=== PATIENT | female | born 1950 | race Caucasian/White ===

== ENCOUNTER 2017-02-08 19:16 | Inpatient (IN) | payer BC ==
[~2017-02-08] VITALS: Ht 162.6 cm; Wt 80.0 kg
[~2017-02-08 19:16] MED LIST: AMBCR125 PO; BUPR200T2 PO; DVNUNK; ESCI1TAB10 PO; FSM70 PO; GLC500 PO; LMCUNK
[2017-02-08] MEDS ORDERED: ONDANSETRON INJ 2 MG/ML 2 ML VIAL IV STA (19:24)
[2017-02-08] MEDS ORDERED: MoRPHine SULFATE 10 MG/ML CARP/VIAL IV STA (19:24)
[2017-02-08] MEDS ORDERED: MoRPHine SULFATE 2 MG/ML CARP ONE (19:35)
[2017-02-08] MEDS ORDERED: MoRPHine SULFATE 4 MG/ML 1 ML CARP\\VIAL ONE (19:36)
--- NOTE | 2017-02-08 20:29 | DIAGNOSTIC IMAGING REPORT ---
PELVIS 1 OR 2 VIEW ROUTINE CLINICAL HISTORY: Pelvic and right hip pain. Trauma. COMPARISON STUDY: 05/17/2016 FINDINGS: There is an acute intertrochanteric right hip fracture with mild varus angulation IMPRESSION: Acute intertrochanteric right hip fracture. Electronically signed by: Micheal Hook M.D. 02/08/2017 8:27 PM Dictated Date/Time: 02/08/2017 8:27 PM
--- NOTE | 2017-02-08 20:29 | DIAGNOSTIC IMAGING REPORT ---
CHEST ONE VIEW PORTABLE CLINICAL HISTORY: Hip pain. Trauma. COMPARISON STUDY: 07/18/2015 FINDINGS: The heart is at the upper limits of normal in size. Mild superior mediastinal prominence is likely secondary to the AP portable technique. There is no focal pulmonary consolidation. There is no failure. There are no pleural effusions. No pneumothorax is visualized.[ IMPRESSION: No active disease in the chest. Electronically signed by: Micheal Hook M.D. 02/08/2017 8:27 PM Dictated Date/Time: 02/08/2017 8:26 PM
--- NOTE | 2017-02-08 20:30 | DIAGNOSTIC IMAGING REPORT ---
RIGHT FEMUR 2 VIEWS ROUTINE CLINICAL HISTORY: Right femur pain. Trauma. COMPARISON: None. DISCUSSION: There is an acute intertrochanteric right hip fracture. The fracture is comminuted and mildly displaced. There is varus angulation at the fracture site. No additional femoral fractures are visualized. IMPRESSION: Comminuted displaced acute intertrochanteric right hip fracture. Electronically signed by: Micheal Hook M.D. 02/08/2017 8:28 PM Dictated Date/Time: 02/08/2017 8:28 PM
[2017-02-08] MEDS ORDERED: NAPR1TAB9 PO (20:59)
[2017-02-08] MEDS ORDERED: LAMO100T16 PO (20:59)
[2017-02-08] MEDS ORDERED: HOME1TAB8 PO (20:59)
[2017-02-08] MEDS ORDERED: FLUO10CA48 PO (20:59)
[2017-02-08 21:00] LABS: BASO % 0.2 %; BASO ABS # 0.03 K/uL (0-0.2); COMPLETE YES; EOS % 0.7 %; HEMATOCRIT 38.3 % (37-47); IG% 0.5 %; LYMPH % 9.5 %; LYMPH ABS # 1.42 K/uL (1.2-3.4); MEAN CELL VOLUME 84.2 fL (80-100); MEAN CORPUSCULAR HEMOGLOBIN 29.2 pg (25-34); MEAN CORPUSCULAR HGB CONC 34.7 g/dl (32-36); MEAN PLATELET VOLUME 9.1 fL (7.4-10.4); MONO % 7.6 %; NEUT % 81.5 %; PLATELET COUNT 228 K/uL (130-400); RED BLOOD COUNT 4.55 M/uL (4.2-5.4); WHITE BLOOD COUNT 15.01 K/uL (4.8-10.8)
[2017-02-08] MEDS ORDERED: FLUO40CA8 PO (21:11)
[2017-02-08 21:13] LABS: URINE APPEARANCE CLOUDY (CLEAR); URINE BILIRUBIN NEG (NEG); URINE COLOR YELLOW; URINE NITRITE NEG (NEG); URINE SPECIFIC GRAVITY 1.015 (1.000-1.030); UROBILINOGEN NEG (NEG); ZZURINE CULT IF INDIC CATH NO
[2017-02-08 21:14] LABS: INR 0.9 (0.9-1.1); PROTHROMBIN TIME (PATIENT) 10.1 SECONDS (9.0-12.0)
[2017-02-08 21:17] LABS: MANUAL MICROSCOPIC REQUIRED? NO; REVIEW REQ? NO
--- NOTE | 2017-02-08 21:59 | History and Physical ---
History & Physical Date & Time of Service: Feb 08, 2017 at 21:59 Chief Complaint: Fall, Hip Pain Primary Care Physician: Meredith Raya C.RTaylorNTaylorPTaylor History of Present Illness Source: patient, family The patient is a 66-year-old female who presents to the emergency department complaining of severe right hip pain that began immediately after a fall when jogging a few hours prior to arrival. She has no other complaint of pains for injury post fall. This was a mechanical fall, the patient denies being lightheaded or dizzy or having palpitations prior to the event. Past Medical/Surgical History Medical Problems: (1) Depression Status: Chronic Family History Patient reports no known family medical history. Social History Smokeless Tobacco Use: No Alcohol Use: none Drug Use: none Multi-Drug Resistant Organisms History of MDRO: No Allergies Coded Allergies: No Known Allergies (Unverified , 07/20/08) Home Medications Scheduled Fluoxetine (Prozac), 100 MG PO HS Homeopathic Products (Zicam Cold Remedy), 1 TAB PO prn Lamotrigine (Lamictal), 100 MG PO HS Naproxen (Aleve), 440 MG PO prn Review of Systems The patient denies chest pain, palpitations, shortness of breath, cough, vision change, hearing change, sore throat, fevers, chills, sweats, weight change, fatigue, nausea, vomiting, abdominal pain, pelvic pain, blood in urine or stool, dysuria, urinary frequency or urgency, lightheadedness, dizziness, headache, memory loss, rash, abnormal bruising or bleeding, imbalance, generalized weakness, numbness or tingling in arms , arthralgias or myalgias, back or neck pain, night sweats, or allergy symptoms. The review of systems is otherwise negative other than for that already noted above, and at least 10 systems have been reviewed. Physical Exam Vital Signs Date Time Temp Pulse Resp B/P Pulse Ox O2 Delivery O2 Flow Rate FiO2 02/08/17 21:55 72 20 172/94 99 Room Air 02/08/17 19:19 36.4 71 20 170/87 95 Room Air The patient is awake, well-developed and adequately nourished, alert and oriented 3, normocephalic and atraumatic, lying in bed and in mild to moderate acute distress secondary to hip pain. HEENT--PERRL, EOMI, mucous membranes and oropharynx normal. Neck--supple, no JVD or bruits, thyroid normal, trachea midline, no adenopathy. Heart--normal S1 and S2, no extra beats, no murmurs, rubs or gallops. Lungs--clear bilaterally with good air movement, no respiratory distress, no accessory muscle use. Abdomen--normal bowel sounds and soft, nontender and nondistended, no hernias or masses, no organomegaly. Extremities--no cyanosis, clubbing or edema. There are good distal pulses b/l. Dermatologic--normal skin turgor, normal color, warm and dry, no abnormal lymph nodes, no rash. Neurologic--cranial nerves II through XII grossly intact, motor and sensory examination normal. Rheumatologic--painful right hip decreased range of motion with foot deviated outward Psychiatric--normal affect. Diagnostics Laboratory Results Results Past 24 Hours Test 02/08/17 20:45 02/08/17 20:48 Range/Units Urine Color YELLOW Urine Appearance CLOUDY CLEAR Urine pH 8.0 4.5-7.5 Urine Specific [place] 1.015 1.000-1.030 Urine Protein NEG NEG Urine Glucose (UA) NEG NEG Urine Ketones NEG NEG Urine Occult Blood NEG NEG Urine Nitrite NEG NEG Urine Bilirubin NEG NEG Urine Urobilinogen NEG NEG Urine Leukocyte Esterase NEG NEG Urine WBC (Auto) 0 0-5 /hpf Urine RBC (Auto) 0-4 0-4 /hpf Urine Hyaline Casts (Auto) 1-5 0-5 /lpf Urine Epithelial Cells (Auto) 10-20 0-5 /lpf Urine Bacteria (Auto) NEG NEG White Blood Count 15.01 4.8-10.8 K/uL Red Blood Count 4.55 4.2-5.4 M/uL Hemoglobin 13.3 12.0-16.0 g/dL Hematocrit 38.3 37-47 % Mean Corpuscular Volume 84.2 80-100 fL Mean Corpuscular Hemoglobin 29.2 25-34 pg Mean Corpuscular Hemoglobin Concent 34.7 32-36 g/dl Platelet Count 228 130-400 K/uL Mean Platelet Volume 9.1 7.4-10.4 fL Neutrophils (%) (Auto) 81.5 % Lymphocytes (%) (Auto) 9.5 % Monocytes (%) (Auto) 7.6 % Eosinophils (%) (Auto) 0.7 % Basophils (%) (Auto) 0.2 % Neutrophils # (Auto) 12.25 1.4-6.5 K/uL Lymphocytes # (Auto) 1.42 1.2-3.4 K/uL Monocytes # (Auto) 1.14 0.11-0.59 K/uL Eosinophils # (Auto) 0.10 0-0.5 K/uL Basophils # (Auto) 0.03 0-0.2 K/uL RDW Standard Deviation 39.6 36.4-46.3 fL RDW Coefficient of Variation 13.0 11.5-14.5 % Immature Granulocyte % (Auto) 0.5 % Immature Granulocyte # (Auto) 0.07 0.00-0.02 K/uL Prothrombin Time 10.1 9.0-12.0 SECONDS Prothromb Time International Ratio 0.9 0.9-1.1 Activated Partial Thromboplast Time 25.0 21.0-31.0 SECONDS Partial Thromboplastin Ratio 1.0 Diagnostic Radiology Patient Name: RICHARD HUFF Unit Number: [id number] Dictated: 02/08/172027 Transcribed: 02/08/172027 ARG Printed Date/Time: [~ rep prt dt]/[~ rep prt tm] [~ rep ct labl] - [~ rep ct ivnm] [facility] [place] [address] Dictated: 02/08/172027 Transcribed: 02/08/172027 ARG Printed Date/Time: [~ rep prt dt]/[~ rep prt tm] [~ rep ct labl] - [~ rep ct ivnm] [~ rep ct add3]] RIGHT FEMUR 2 VIEWS ROUTINE CLINICAL HISTORY: Right femur pain. Trauma. COMPARISON: None. DISCUSSION: There is an acute intertrochanteric right hip fracture. The fracture is comminuted and mildly displaced. There is varus angulation at the fracture site. No additional femoral fractures are visualized. IMPRESSION: Comminuted displaced acute intertrochanteric right hip fracture. Electronically signed by: Micheal Hook M.D. 02/08/2017 8:28 PM Dictated Date/Time: 02/08/2017 8:28 PM The status of this report is Signed. Draft = Not yet reviewed or approved by Radiologist. Signed = Reviewed and approved by Radiologist. <AttendingPhy></AttendingPhy> <FamilyPhy>Meredith Raya C.R.N.P.</FamilyPhy> <PrimaryPhy>Meredith Raya C.R.NTaylorP.</PrimaryPhy> <UnitNumber>[id number]</ UnitNumber> <VisitNumber>[id number]</VisitNumber> <PatientName>RICHARD HUFF< /PatientName> <DateOfBirth>1950</DateOfBirth> <Location>[facility]</Location> < ServiceDate>02/08/17</ServiceDate> <MNE>ESINDI</MNE> <OrderingPhy>Luís Overton DO</OrderingPhy> <OrderingPhyMNE>f rep ord dr roca</OrderingPhyMNE> < DictatingPhyMNE>f rep dict dr roca</DictatingPhyMNE> <CCListMNE>f rep ct mne</ CCListMNE> <AdmittingPhyMNE>f pt admit dr roca</AdmittingPhyMNE> <AttendingPhyMNE >f pt attend dr roca</AttendingPhyMNE> <ConsultingPhyMNE>f pt consult dr roca</ConsultingPhyMNE> <FamilyPhyMNE>f pt fam dr roca</FamilyPhyMNE> <OtherPhyMNE>f pt other dr roca</OtherPhyMNE> < PrimaryPhyMNE>f pt prim care dr roca</PrimaryPhyMNE> <ReferringPhyMNE>f pt referring dr roca</ReferringPhyMNE> Patient Name: RICHARD HUFF Unit Number: [id number] Dictated: 02/08/172025 Transcribed: 02/08/172025 ARG Printed Date/Time: [~ rep prt dt]/[~ rep prt tm] [~ rep ct labl] - [~ rep ct ivnm] [facility] [place] [address] Dictated: 02/08/172025 Transcribed: 02/08/172025 ARG Printed Date/Time: [~ rep prt dt]/[~ rep prt tm] [~ rep ct labl] - [~ rep ct ivnm] CHEST ONE VIEW PORTABLE CLINICAL HISTORY: Hip pain. Trauma. COMPARISON STUDY: 07/18/2015 FINDINGS: The heart is at the upper limits of normal in size. Mild superior mediastinal prominence is likely secondary to the AP portable technique. There is no focal pulmonary consolidation. There is no failure. There are no pleural effusions. No pneumothorax is visualized.[ IMPRESSION: No active disease in the chest. Electronically signed by: Micheal Hook M.D. 02/08/2017 8:27 PM Dictated Date/Time: 02/08/2017 8:26 PM The status of this report is Signed. Draft = Not yet reviewed or approved by Radiologist. Signed = Reviewed and approved by Radiologist. <AttendingPhy></AttendingPhy> <FamilyPhy>Meredith Raya, C.R.N.P.</FamilyPhy> <PrimaryPhy>Meredith Raya, C.R.N.P.</PrimaryPhy> <UnitNumber>[id number]</ UnitNumber> <VisitNumber>[id number]</VisitNumber> <PatientName>RICHARD HUFF< /PatientName> <DateOfBirth>1950</DateOfBirth> <Location>[facility]</Location> < ServiceDate>02/08/17</ServiceDate> <MNE>ESINDI</MNE> <OrderingPhy>Luís Overton DO</OrderingPhy> <OrderingPhyMNE>f rep ord dr roca</OrderingPhyMNE> < DictatingPhyMNE>f rep dict dr roca</DictatingPhyMNE> <CCListMNE>f rep ct mne</ CCListMNE> <AdmittingPhyMNE>f pt admit dr roca</AdmittingPhyMNE> <AttendingPhyMNE >f pt attend dr roca</AttendingPhyMNE> <ConsultingPhyMNE>f pt consult dr roca</ConsultingPhyMNE> <FamilyPhyMNE>f pt fam dr roca</FamilyPhyMNE> <OtherPhyMNE>f pt other dr roca</OtherPhyMNE> < PrimaryPhyMNE>f pt prim care dr roca</PrimaryPhyMNE> <ReferringPhyMNE>f pt referring dr roca</ReferringPhyMNE> Patient Name: RICHARD HUFF Unit Number: [id number] Dictated: 02/08/172026 Transcribed: 02/08/172026 ARG Printed Date/Time: [~ rep prt dt]/[~ rep prt tm] [~ rep ct labl] - [~ rep ct ivnm] [facility] Radiology Department [place] [id number] Dictated: 02/08/172026 Transcribed: 02/08/172026 ARG Printed Date/Time: [~ rep prt dt]/[~ rep prt tm] [~ rep ct labl] - [~ rep ct ivnm] [~ rep ct add3]] PELVIS 1 OR 2 VIEW ROUTINE CLINICAL HISTORY: Pelvic and right hip pain. Trauma. COMPARISON STUDY: 05/17/2016 FINDINGS: There is an acute intertrochanteric right hip fracture with mild varus angulation IMPRESSION: Acute intertrochanteric right hip fracture. Electronically signed by: Micheal Hook M.D. 02/08/2017 8:27 PM Dictated Date/Time: 02/08/2017 8:27 PM The status of this report is Signed. Draft = Not yet reviewed or approved by Radiologist. Signed = Reviewed and approved by Radiologist. <AttendingPhy></AttendingPhy> <FamilyPhy>Meredith Raya C.R.N.P.</FamilyPhy> <PrimaryPhy>Meredith Raya C.RTaylorN.P.</PrimaryPhy> <UnitNumber>[id number]</ UnitNumber> <VisitNumber>[id number]</VisitNumber> <PatientName>RICHARD HUFF< /PatientName> <DateOfBirth>1950</DateOfBirth> [facility] < ServiceDate>02/08/17</ServiceDate> <MNE>ESINDI</MNE> <OrderingPhy>OvertonLuís harper Talita DO</OrderingPhy> <OrderingPhyMNE>f rep ord dr roca</OrderingPhyMNE> < DictatingPhyMNE>f rep dict dr roca</DictatingPhyMNE> <CCListMNE>f rep ct mne</ CCListMNE> <AdmittingPhyMNE>f pt admit dr roca</AdmittingPhyMNE> <AttendingPhyMNE >f pt attend dr roca</AttendingPhyMNE> <ConsultingPhyMNE>f pt consult dr roca</ConsultingPhyMNE> <FamilyPhyMNE>f pt fam dr roca</FamilyPhyMNE> <OtherPhyMNE>f pt other dr roca</OtherPhyMNE> < PrimaryPhyMNE>f pt prim care dr roca</PrimaryPhyMNE> <ReferringPhyMNE>f pt referring dr roca</ReferringPhyMNE> EKG EKG shows normal sinus rhythm at 78 bpm, there are no acute ST-T changes. Impression Assessment and Plan Closed right hip fracture--the patient be admitted to the medical surgical floor. She'll be made nothing by mouth after midnight. Place on Zofran 4 mg IV every 6 hours when necessary, Protonix 40 mg IV daily, and morphine sulfate 2 -4 mg IV every 2 hours when necessary[address] Consult Dr. Saeed Johnson from orthopedics. Place on normal saline with KCl 20 mEq at 100 ML's per hour. Depression--continue fluoxetine 100 mg by mouth at bedtime and lamotrigine 100 mg by mouth at bedtime. Level of Care Med/Surg Advanced Directives Existing Advance Directive: No Existing Living Will: No Existing Power of Advertising Columnist: No Resuscitation Status FULL RESUSCITATION VTE Prophylaxis VTE Risk Assessment Done? Y/N: Yes Risk Level: Moderate Given or contraindicated: SCD's
[2017-02-08] MEDS ORDERED: ACETAMINOPHEN IV 100 ML IV PRN (22:00)
[2017-02-08] MEDS ORDERED: MoRPHine SULFATE 2 MG/ML CARP IV PRN (22:00)
[2017-02-08] MEDS ORDERED: ACETAMINOPHEN 325 MG TAB PO PRN (22:00)
[2017-02-08] MEDS ORDERED: ONDANSETRON INJ 2 MG/ML 2 ML VIAL IV PRN (22:00)
[2017-02-08] MEDS ORDERED: ZOLPIDEM TARTRATE 5 MG TAB PO PRN (22:00)
[2017-02-08 22:12] LABS: BUN/CREATININE RATIO 15.4 (10-20); CALCIUM 8.9 mg/dl (8.5-10.1); CREATININE 1.2 mg/dl (0.60-1.20); POTASSIUM 3.7 mmol/L (3.5-5.1)
--- NOTE | 2017-02-08 22:28 | EMERGENCY ROOM VISIT NOTE ---
History Report prepared by Vidal: Parth Bedoya Under the Supervision of: Dr. Luís Overton D.O. First contact with patient: 19:18 Chief Complaint: HIP PAIN Stated Complaint: FALL, HIP PAIN History of Present Illness The patient is a 66 year old female who presents to the Emergency Room with complaints of severe and persistent left hip pain starting a few hours ago. The patient was jogging when she fell and landed on her left hip. She denies hitting her head. She has been having the pain since her fall. She has worsening pain with movement. Pt denies headache, change in vision, neck pain, fevers, chest pain, shortness of breath, nausea, vomiting, diarrhea, pain with urination, and melena. She denies any blood thinners. She does not have any medical problems. Source of History: patient Onset: a few hours ago Position: other (left hip) Symptom Intensity: severe Timing: other (persistent) Modifying Factors (Worsening): movement Associated Symptoms: No SOB, No chest pain, No diarrhea, No fevers, No headache, No nausea, No neck pain, No vomiting Review of Systems See HPI for pertinent positives & negatives. A total of 10 systems reviewed and were otherwise negative. Past Medical & Surgical Medical Problems: (1) Closed right hip fracture (2) Depression Family History Patient reports no known family medical history. Social History Marital Status: Occupation Status: retired Current/Historical Medications Scheduled Fluoxetine (Prozac), 100 MG PO HS Homeopathic Products (Zicam Cold Remedy), 1 TAB PO prn Lamotrigine (Lamictal), 100 MG PO HS Naproxen (Aleve), 440 MG PO prn Allergies Coded Allergies: No Known Allergies (Unverified , 07/20/08) Physical Exam Vital Signs Date Time Temp Pulse Resp B/P Pulse Ox O2 Delivery O2 Flow Rate FiO2 02/08/17 21:55 72 20 172/94 99 Room Air 02/08/17 19:19 36.4 71 20 170/87 95 Room Air Physical Exam GENERAL: Laying on her left side, in moderate distress, holding her right hip. HEAD: Normocephalic, atraumatic. EYE EXAM: normal conjunctiva, PERRL and EOM's grossly intact OROPHARYNX: no exudate, no erythema, lips, buccal mucosa, and tongue normal and mucous membranes are moist NECK: supple, no nuchal rigidity, no adenopathy, non-tender CHEST: stable to compression anteriorly posteriorly LUNGS: Clear to auscultation. Normal chest wall mechanics HEART: no murmurs, S1 normal and S2 normal ABDOMEN: abdomen soft, non-tender, normo-active bowel sounds, no masses, no rebound or guarding. BACK: Back is symmetrical on inspection and there is no deformity, no midline tenderness, no CVA tenderness. SKIN: Small abrasions on bilateral lower extremities UPPER EXTREMITIES: upper extremities are grossly normal. LOWER EXTREMITIES: No pitting edema. Right lower extremity with significant pain with palpation of the hip. DP 2/4. Gross sensations intact. Right lower extremity is shortened. Small abrasions on bilateral feet. No pain on palpation of the left lower extremity. NEURO EXAM: Normal sensorium, cranial nerves II-XII grossly intact, normal speech, no gross weakness of arms, no gross weakness of legs. Medical Decision & Procedures ER Provider Diagnostic Interpretation: Xray results as interpreted by me and the radiologist: CHEST ONE VIEW PORTABLE CLINICAL HISTORY: Hip pain. Trauma. COMPARISON STUDY: 07/18/2015 FINDINGS: The heart is at the upper limits of normal in size. Mild superior mediastinal prominence is likely secondary to the AP portable technique. There is no focal pulmonary consolidation. There is no failure. There are no pleural effusions. No pneumothorax is visualized.[ IMPRESSION: No active disease in the chest. Electronically signed by: Micheal Hook M.D. 02/08/2017 8:27 PM Dictated Date/Time: 02/08/2017 8:26 PM PELVIS 1 OR 2 VIEW ROUTINE CLINICAL HISTORY: Pelvic and right hip pain. Trauma. COMPARISON STUDY: 05/17/2016 FINDINGS: There is an acute intertrochanteric right hip fracture with mild varus angulation IMPRESSION: Acute intertrochanteric right hip fracture. Electronically signed by: Micheal Hook M.D. 02/08/2017 8:27 PM Dictated Date/Time: 02/08/2017 8:27 PM RIGHT FEMUR 2 VIEWS ROUTINE CLINICAL HISTORY: Right femur pain. Trauma. COMPARISON: None. DISCUSSION: There is an acute intertrochanteric right hip fracture. The fracture is comminuted and mildly displaced. There is varus angulation at the fracture site. No additional femoral fractures are visualized. IMPRESSION: Comminuted displaced acute intertrochanteric right hip fracture. Electronically signed by: Micheal Hook M.D. 02/08/2017 8:28 PM Dictated Date/Time: 02/08/2017 8:28 PM Laboratory Results 02/08/17 20:48 Red Blood Count 4.55, Mean Corpuscular Volume 84.2, Mean Corpuscular Hemoglobin 29.2, Mean Corpuscular Hemoglobin Concent 34.7, Mean Platelet Volume 9.1, Neutrophils (%) (Auto) 81.5, Lymphocytes (%) (Auto) 9.5, Monocytes (%) (Auto) 7.6, Eosinophils (%) (Auto) 0.7, Basophils (%) (Auto) 0.2, Neutrophils # (Auto) 12.25, Lymphocytes # (Auto) 1.42, Monocytes # (Auto) 1.14, Eosinophils # (Auto) 0.10, Basophils # (Auto) 0.03 02/08/17 20:48 Test 02/08/17 20:45 02/08/17 20:48 Urine Color YELLOW Urine Appearance CLOUDY (CLEAR) Urine pH 8.0 (4.5-7.5) Urine Specific [place] 1.015 (1.000-1.030) Urine Protein NEG (NEG) Urine Glucose (UA) NEG (NEG) Urine Ketones NEG (NEG) Urine Occult Blood NEG (NEG) Urine Nitrite NEG (NEG) Urine Bilirubin NEG (NEG) Urine Urobilinogen NEG (NEG) Urine Leukocyte Esterase NEG (NEG) Urine WBC (Auto) 0 /hpf (0-5) Urine RBC (Auto) 0-4 /hpf (0-4) Urine Hyaline Casts (Auto) 1-5 /lpf (0-5) Urine Epithelial Cells (Auto) 10-20 /lpf (0-5) Urine Bacteria (Auto) NEG (NEG) White Blood Count 15.01 K/uL (4.8-10.8) Red Blood Count 4.55 M/uL (4.2-5.4) Hemoglobin 13.3 g/dL (12.0-16.0) Hematocrit 38.3 % (37-47) Mean Corpuscular Volume 84.2 fL (80-100) Mean Corpuscular Hemoglobin 29.2 pg (25-34) Mean Corpuscular Hemoglobin Concent 34.7 g/dl (32-36) Platelet Count 228 K/uL (130-400) Mean Platelet Volume 9.1 fL (7.4-10.4) Neutrophils (%) (Auto) 81.5 % Lymphocytes (%) (Auto) 9.5 % Monocytes (%) (Auto) 7.6 % Eosinophils (%) (Auto) 0.7 % Basophils (%) (Auto) 0.2 % Neutrophils # (Auto) 12.25 K/uL (1.4-6.5) Lymphocytes # (Auto) 1.42 K/uL (1.2-3.4) Monocytes # (Auto) 1.14 K/uL (0.11-0.59) Eosinophils # (Auto) 0.10 K/uL (0-0.5) Basophils # (Auto) 0.03 K/uL (0-0.2) RDW Standard Deviation 39.6 fL (36.4-46.3) RDW Coefficient of Variation 13.0 % (11.5-14.5) Immature Granulocyte % (Auto) 0.5 % Immature Granulocyte # (Auto) 0.07 K/uL (0.00-0.02) Prothrombin Time 10.1 SECONDS (9.0-12.0) Prothromb Time International Ratio 0.9 (0.9-1.1) Activated Partial Thromboplast Time 25.0 SECONDS (21.0-31.0) Partial Thromboplastin Ratio 1.0 Anion Gap 12.0 mmol/L (3-11) Est Creatinine Clear Calc Drug Dose 48.5 ml/min Estimated GFR () 55.3 Estimated GFR (Non- 47.7 BUN/Creatinine Ratio 15.4 (10-20) Calcium Level 8.9 mg/dl (8.5-10.1) Laboratory results per my review. Medications Administered Medications (Trade) Dose Ordered Sig/Loly Route Start Time Stop Time Status Last Admin Dose Admin Ondansetron HCl (Zofran Inj) 4 mg NOW STAT IV 02/08/17 19:24 02/08/17 19:27 DC 02/08/17 19:32 4 MG Morphine Sulfate (MoRPHine SULFATE INJ) 2 mg STK-MED ONCE .ROUTE 02/08/17 19:35 02/08/17 19:36 DC 02/08/17 19:32 2 MG Morphine Sulfate (MoRPHine SULFATE INJ) 4 mg STK-MED ONCE .ROUTE 02/08/17 19:36 02/08/17 19:37 DC 02/08/17 19:31 4 MG ED Course ED COURSE: Vital signs were reviewed and showed hypertensive. The patients medical record was reviewed The above diagnostic studies were performed and reviewed. ED treatments and interventions as stated above. 1917: The patient was evaluated in room C04. A complete history and physical examination was performed. 2023: Upon reevaluation, the patient is resting comfortably.I discussed my findings with the patient and she understands and agrees with the treatment plan. Based on the patients age, coexisting illnesses, exam and lab findings the decision to treat as an inpatient was made. The patient remained stable while under my care. The patient will be evaluated for further management. 2031: I discussed the patient's case with Dr. Johnson, orthopedic surgeon with [facility]. 2043: I discussed the patient's case with Dr. Esquivel, from [facility]. Medical Decision Differential diagnoses include major intracranial, cervical, spinal, thoracic, abdominal, pelvic and neurologic injury. Fracture, contusion, sprain, strain, laceration, abrasions included as well. Patient is a 66-year-old female who presents to the ER following a mechanical fall walking. Denies any trauma to her head or any other complaints. No blood thinners. She is in significant pain in her right hip. X-ray show right hip fracture. Discussed this with orthopedics. Labs were obtained per the hip fracture protocol. White count was 15,000 likely secondary to pain. BMP was unremarkable. UA was unremarkable. INR was normal. Patient was given IV morphine and admitted to internal medicine for right hip fx. Consults Time Called: 2022 Consulting Physician: Dr. Johnson, orthopedic surgeon with [facility] Returned Call: 2031 I discussed the patient's case with Dr. Johnson, orthopedic surgeon with [facility]. Additional Consults: Time Called: 2039 Consulted Physician: Dr. Esquivel, from [facility] Returned Call: 2043 Additional Comments: I discussed the patient's case with Dr. Esquivel, from [facility]. Impression Primary Impression: Hip fracture, right Scribe Attestation The scribe's documentation has been prepared under my direction and personally reviewed by me in its entirety. I confirm that the note above accurately reflects all work, treatment, procedures, and medical decision making performed by me. Departure Information Dispostion Being Evaluated By Hospitalist Meredith Cortes C.R.NTaylorPTaylor (PCP) Patient Instructions My [facility] Problem Qualifiers Primary Impression: Hip fracture, right Encounter type: initial encounter Fracture type: closed Qualified Codes: S72.001A - Fracture of unspecified part of neck of right femur, initial encounter for closed fracture
[2017-02-08 22:35] VITALS: BP 172/94; PULSE 72; TEMP 36.4; O2SAT 95; Ht 162.6 cm; Wt 80.0 kg
[2017-02-08 23:00] VITALS: BP 190/79; PULSE 69; TEMP 36.5; O2SAT 99
[2017-02-08] MEDS: MoRPHine SULFATE 4 MG/ML 1 ML CARP\\VIAL IV PRN (23:15)
[2017-02-08 23:48] VITALS: BP 170/78
[2017-02-09] VITALS (8 sets, daily range): BP systolic 121–185; BP diastolic 74–108; PULSE 83–102; TEMP 36.4–36.9; O2SAT 95–98
[2017-02-09] MEDS: NSS + 20MEQ KCL 1000ML 1,000 ML IV SCH ×3 (00:31→19:07)
[2017-02-09] MEDS: MoRPHine SULFATE 4 MG/ML 1 ML CARP\\VIAL IV PRN ×5 (00:49→09:57)
[2017-02-09 06:37] LABS: BUN/CREATININE RATIO 14.8 (10-20); CALCIUM 8.7 mg/dl (8.5-10.1); CREATININE 1.1 mg/dl (0.60-1.20); MAGNESIUM 2.4 mg/dl (1.8-2.4); POTASSIUM 4.2 mmol/L (3.5-5.1)
[2017-02-09 07:27] LABS: BASO % 0.3 %; BASO ABS # 0.03 K/uL (0-0.2); COMPLETE YES; EOS % 0.2 %; HEMATOCRIT 36.3 % (37-47); IG% 0.4 %; LYMPH ABS # 1.25 K/uL (1.2-3.4); MEAN CELL VOLUME 86.2 fL (80-100); MEAN CORPUSCULAR HEMOGLOBIN 28.7 pg (25-34); MEAN CORPUSCULAR HGB CONC 33.3 g/dl (32-36); MEAN PLATELET VOLUME 9.1 fL (7.4-10.4); MONO % 11.6 %; NEUT % 76.5 %; PLATELET COUNT 223 K/uL (130-400); RED BLOOD COUNT 4.21 M/uL (4.2-5.4); WHITE BLOOD COUNT 11.34 K/uL (4.8-10.8)
--- NOTE | 2017-02-09 08:15 | ORTHOPEDIC CONSULTATION ---
DATE OF CONSULTATION: 02/09/2017 CHIEF COMPLAINT: Right hip pain. HISTORY OF PRESENT ILLNESS: This patient is a 66-year-old female who sustained injury to her hip last night. She apparently was running outside after her dog on a gravel surface when she misstepped and fell suddenly. She had immediate pain and discomfort, was unable to stand or bear weight. She denied lightheadedness, dizziness or palpitations. She has no other complaints other than severe right hip pain. PAST MEDICAL HISTORY: Positive for severe depression. PAST SURGICAL HISTORY: History of multiple surgeries including hysterectomy and C-sections. MEDICATIONS: Prozac 100 mg at bedtime, Lamictal 100 mg at bedtime. ALLERGIES: No known medical allergies. FAMILY HISTORY: The patient lives with her son. She is retired. No significant family history. REVIEW OF SYSTEMS: Essentially negative. See admission history and physical. PHYSICAL EXAMINATION: ORTHOPEDIC: The patient is lying in bed. She is uncomfortable. Her right leg is markedly shortened and externally rotated. She has good distal pulses. There are no openings in the skin. Distal neurological function is intact. Remainder of orthopedic exam is negative. IMAGING: X-rays reveal a markedly comminuted proximal right hip fracture which is intertrochanteric in nature but the greater trochanter is fractured off, femoral neck is fractured off and this is obviously an unstable fracture. IMPRESSION: Severe fracture, right hip. PLAN: Discussed with the patient that she has a complicated case with a high neck and greater trochanter fracture. Fixation options are multiple and could be difficult including open reduction and internal fixation, intramedullary pinning or calcar replacement type surgery. This was discussed with the patient, we will come up with a plan today. Informed consent is obtained. She is n.p.o. Thank you for this consult.
[2017-02-09] MEDS: LORAZEPAM INJ 0.5 MG in SYRINGE 0.75 ML IV PRN ×2 (10:50→21:49)
[2017-02-09] MEDS: PANTOprazole INJ 40 MG in SYRINGE 0 ML IV SCH (10:51)
[2017-02-09] MEDS ORDERED: CEFAZOLIN IV 2,000 MG/60 ML D5W IV ONE (13:25)
[2017-02-09] MEDS ORDERED: BUPIVACAINE 0.5 % 5 MG/1 ML PF 10ML VIAL ONE (13:32)
[2017-02-09] MEDS ORDERED: NURSING VERBAL MED ORDER STA (13:33)
[2017-02-09] MEDS ORDERED: MIDAZOLAM HCL 1 MG/ML 2ML VIAL ONE ×2 (13:51→14:40)
[2017-02-09] MEDS ORDERED: FENTANYL CITRATE INJ 50 MCG/1 ML 2 ML VIAL ONE ×2 (13:51→16:29)
[2017-02-09] MEDS ORDERED: VANCOMYCIN INJ 400 MG in NSS 100ML IR SCH (14:00)
[2017-02-09] MEDS ORDERED: POLYMYXIN B SULFATE 100,000 UNITS in NSS 100ML IR SCH (14:00)
[2017-02-09] MEDS ORDERED: KETAMINE HCL INJ 50 MG/ML 10 ML VIAL ONE (14:05)
[2017-02-09] MEDS ORDERED: POVIDONE-IODINE OP SOLN 30 ML BTL ONE (14:23)
[2017-02-09] MEDS ORDERED: EpHEDrine SULFATE 50MG/5ML SYR ONE (14:42)
[2017-02-09] MEDS ORDERED: DEXAMETHASONE SOD INJ 4 MG/ML VIAL ONE (14:42)
[2017-02-09] MEDS ORDERED: ONDANSETRON INJ 2 MG/ML 2 ML VIAL ONE (14:42)
[2017-02-09] MEDS ORDERED: EpHEDrine SULFATE INJ 50 MG/ML AMP IV PRN (15:15)
[2017-02-09] MEDS ORDERED: FENTANYL CITRATE INJ 50 MCG/1 ML 2 ML VIAL IV PRN (15:15)
[2017-02-09] MEDS ORDERED: ATROPINE SULFATE 0.1 MG/ML 5ML SYR IV PRN (15:15)
[2017-02-09] MEDS ORDERED: ONDANSETRON INJ 2 MG/ML 2 ML VIAL IV PRN (15:15)
--- NOTE | 2017-02-09 16:19 | [facility] Post Operative Brief Note ---
Immediate Operative Summary Operative Date Feb 09, 2017. Pre-Operative Diagnosis severe right hip fracture Post-Operative Diagnosis severe right hip fracture Procedure(s) Performed Right Cemented Hip Replacement Constrained Acetabular Cup, Greater Trochater Repair Surgeon Dr. Trev Johnson First Assistant Manager Surgeon(s) Diego Marshall PA-C Estimated Blood Loss 300ML Findings severe comminution Specimens A. Right femoral head Complication(s) None Disposition Recovery Room / PACU
[2017-02-09] MEDS ORDERED: BACITRACIN 50,000 UNITS IR ONE (16:22)
[2017-02-09] MEDS ORDERED: BISACODYL 10 MG SUPP PR PRN (16:30)
[2017-02-09] MEDS ORDERED: NALOXONE HCL 0.4 MG/1 ML VIAL/CARP IV PRN (16:30)
[2017-02-09] MEDS ORDERED: OXYCODONE HCL IR 5 MG TAB (IMMEDIATE RELEASE) PO PRN (16:30)
[2017-02-09] MEDS ORDERED: SOD PHOSPHATE/SOD BIPHOSPHATE ENEMA 132 ML BTL PR PRN (16:30)
--- NOTE | 2017-02-09 17:29 | Anesthesiology Progress Note ---
Anesthesia Post Op Note Date & Time Feb 09, 2017 at 17:28 Vital Signs Pain Intensity: 3 Vital Signs Past 12 Hours Date Time Temp Pulse Resp B/P Pulse Ox O2 Delivery O2 Flow Rate FiO2 02/09/17 17:20 98 18 133/73 96 Nasal Cannula 3 02/09/17 17:10 36.4 97 20 119/71 96 Nasal Cannula 3 02/09/17 17:00 97 18 122/65 97 Mask 10 02/09/17 16:50 96 18 125/72 97 Mask 10 02/09/17 16:43 36.8 95 16 110/64 98 Mask 10 02/09/17 07:25 36.7 83 16 162/84 97 2.0 02/09/17 07:15 Nasal Cannula 2.0 Notes Mental Status: alert / awake / arousable, participated in evaluation Pt Amnestic to Procedure: Yes Nausea / Vomiting: adequately controlled Pain: adequately controlled Airway Patency, RR, SpO2: stable & adequate BP & HR: stable & adequate Hydration State: stable & adequate Anesthetic Complications: no major complications apparent
[2017-02-09] MEDS: TRANEXAMIC ACID AMP 1,000 MG in NSS 100ML IV SCH ×2 (18:05→18:06)
--- NOTE | 2017-02-09 18:11 | OPERATIVE REPORT ---
DATE OF OPERATION: 02/08/2017 PREOPERATIVE DIAGNOSIS: Comminuted right proximal femur fracture. POSTOPERATIVE DIAGNOSIS: Same. PROCEDURES: 1. Right cemented total hip replacement with constrained acetabular component. 2. Repair of greater trochanter. SURGEON: Dr. Johnson. CUT TOBACCO BULKER: MAREK Shukla. ANESTHESIA: Spinal. BLOOD LOSS: 300. REPLACEMENT FLUIDS: 1800 mL of crystalloid. DRAINS: Hemovac x2. CULTURES: None. COMPLICATIONS: None. COMPONENTS USED: 1. Biomet G7 dual mobility cup size 48. 2. Stem Teresa CRS size 15 x 180 with a 10-mm calcar augment and 3.5 x 28-mm head. 3. Trochanteric repair claw 4-hole Teresa plate. NOTE: MAREK Shukla was present and assisted throughout due to the complicated nature of this case. He helped with preparation and set up, first assisted throughout and personally closed the fascial, subcutaneous and skin layers and applied the postoperative dressing. INDICATION FOR PROCEDURE: This patient is a 66-year-old female who has a history of depression, was in her usual state of health, was chasing her dog and fell, sustaining a severely comminuted proximal femur fracture. It was decided that replacement would be more successful then an attempted pinning. DESCRIPTION: Following satisfactory spinal, the patient was placed in the lateral decubitus position with the axillary roll and all sites were padded appropriately and the body was secured with a lateral body positioner. Following a surgical time-out, a lateral approach to the hip was performed, deepened through a moderately large subcutaneous layer. Hemostasis was controlled. The fascia was divided longitudinally exposing the proximal femur. It was obvious where the trochanteric fracture was. The greater trochanter fracture was mobilized using the trochanteric slide type approach leaving the vastus lateralis and all of the gluteus muscles attached to the trochanter. This was reflected anteriorly gluteus medius and gluteus minimus. The capsule was encountered. A complete posterior capsulectomy was completed, exposing the femoral neck and head fracture. The femoral neck with the attached femoral head was removed and the acetabulum was inspected. Acetabular soft tissue content was excised. Acetabular reaming was completed and a 47 and a 48 shell was impacted into an anatomic position and secured with a dome screw. The dual mobility liner was placed. Attention was turned to the femur. The femur was prepared up to the size 15. A 10-mm calcar replacement device was used and a 28-mm head +3.5 showed good soft tissue tension, leg lengths appeared approximately right using the medial malleolus. The trial component was removed. The cement restriction plug was placed. Third generation cement technique was used using Simplex G cement. When the cement had hardened, a trial reduction with a +3 head showed similar stability. After irrigation, the final head and dual mobility head was placed. The hip was irrigated and reduced. The wound was irrigated copiously. Two Hemovac drains were placed. The greater trochanter was then reapproximated using a 4-hole plate to attach it and this effected a very good fixation of the greater trochanter muscle complex. The wound was irrigated one final time. The vastus lateralis was reattached with a few posterior sutures. After irrigation, the fascia was closed with a running suture of 0 V-Loc and reinforced with #1 Vicryl. Subcutaneous tissues were closed with 1 and 2-0 Vicryl. Skin was closed with surgical stefan. A surface wound VAC was applied. The patient was turned back supine and returned to the recovery room having tolerated the procedure in good condition. I attest to the content of the Intraoperative Record and any orders documented therein. Any exceptio ns are noted below.
[2017-02-09] MEDS: OXYCODONE HCL IR 5 MG TAB (IMMEDIATE RELEASE) PO PRN ×2 (18:25→23:41)
--- NOTE | 2017-02-09 18:29 | Hospitalist Progress Note ---
Hospitalist Progress Note Date of Service Feb 09, 2017. Subjective Pt evaluation today including: conversation w/ patient patient with post op pain at site of surgery Medications Medications (Trade) Dose Ordered Sig/Loly Route Start Time Stop Time Status Last Admin Dose Admin Ondansetron HCl (Zofran Inj) 4 mg NOW STAT IV 02/08/17 19:24 02/08/17 19:27 DC 02/08/17 19:32 4 MG Morphine Sulfate (MoRPHine SULFATE INJ) 2 mg STK-MED ONCE .ROUTE 02/08/17 19:35 02/08/17 19:36 DC 02/08/17 19:32 2 MG Morphine Sulfate (MoRPHine SULFATE INJ) 4 mg STK-MED ONCE .ROUTE 02/08/17 19:36 02/08/17 19:37 DC 02/08/17 19:31 4 MG Ondansetron HCl 4 mg 4 mg Q6H PRN IV 02/08/17 22:00 03/10/17 21:59 02/08/17 23:14 4 MG Potassium Chloride/Sodium Chloride (Nss + 20meq KCl 1000ml) 1,000 ml @ 100 mls/hr Q10H IV 02/08/17 23:15 03/10/17 23:14 02/09/17 08:57 100 MLS/HR Morphine Sulfate 4 mg 4 mg Q2H PRN IV 02/08/17 22:00 02/09/17 17:56 DC 02/09/17 09:57 4 MG Pantoprazole Sodium 40 mg/ Syringe 10 ml @ 5 mls/min DAILY@11 IV 02/09/17 11:00 03/11/17 10:59 02/09/17 10:51 5 MLS/MIN Lorazepam/Syringe (Ativan Inj/ Syringe) 1 ml @ 0.5 mls/min TID PRN IV 02/09/17 10:00 03/11/17 09:59 02/09/17 10:50 0.5 MLS/MIN Cefazolin Sodium 2000 mg 2,000 mg STK-MED ONCE IV 02/09/17 13:25 02/09/17 13:26 DC 02/09/17 13:53 2,000 MG Polymyxin B Sulfate 444703 units/Sodium Chloride 102 ml @ 0 mls/hr TODAY@1400 IR 02/09/17 14:00 02/09/17 14:01 DC 02/09/17 16:17 102 MLS/HR Vancomycin HCl/ Sodium Chloride (Vancomycin Inj/ Nss 100ml) 108 ml @ 0 mls/hr TODAY@1400 IR 02/09/17 14:00 02/09/17 14:01 DC 02/09/17 16:15 108 MLS/HR Bacitracin (Bacitracin 50,000 Units) 50,000 units ONE ONCE IR 02/09/17 16:22 02/09/17 16:25 DC 02/09/17 16:25 50,000 UNITS Objective Vital Signs Date Time Temp Pulse Resp B/P Pulse Ox O2 Delivery O2 Flow Rate FiO2 02/09/17 18:23 36.6 94 16 164/84 95 Nasal Cannula 2.0 02/09/17 17:35 97 16 143/74 97 Nasal Cannula 3 02/09/17 17:20 98 18 133/73 96 Nasal Cannula 3 02/09/17 17:10 36.4 97 20 119/71 96 Nasal Cannula 3 02/09/17 17:00 97 18 122/65 97 Mask 10 02/09/17 16:50 96 18 125/72 97 Mask 10 02/09/17 16:43 36.8 95 16 110/64 98 Mask 10 02/09/17 07:25 36.7 83 16 162/84 97 2.0 02/09/17 07:15 Nasal Cannula 2.0 02/09/17 01:11 85 158/79 02/08/17 23:48 170/78 02/08/17 23:22 Room Air 02/08/17 23:00 36.5 69 16 190/79 99 Nasal Cannula 2.0 02/08/17 22:35 36.4 72 20 172/94 95 Nasal Cannula 2.0 02/08/17 22:20 95 Nasal Cannula 2.0 02/08/17 22:20 87 Room Air 02/08/17 21:55 72 20 172/94 99 Room Air 02/08/17 19:19 36.4 71 20 170/87 95 Room Air Physical Exam General Appearance: WD/WN Eyes: normal inspection ENT: hearing grossly normal Neck: trachea midline Respiratory/Chest: lungs clear Cardiovascular: regular rate, rhythm Abdomen: normal bowel sounds Laboratory Results Last 24 Hours Test 02/08/17 20:45 02/08/17 20:48 02/09/17 05:52 02/09/17 06:50 Urine Color YELLOW Urine Appearance CLOUDY Urine pH 8.0 Urine Specific Beemer 1.015 Urine Protein NEG Urine Glucose (UA) NEG Urine Ketones NEG Urine Occult Blood NEG Urine Nitrite NEG Urine Bilirubin NEG Urine Urobilinogen NEG Urine Leukocyte Esterase NEG Urine WBC (Auto) 0 /hpf Urine RBC (Auto) 0-4 /hpf Urine Hyaline Casts (Auto) 1-5 /lpf Urine Epithelial Cells (Auto) 10-20 /lpf Urine Bacteria (Auto) NEG White Blood Count 15.01 K/uL 11.34 K/uL Red Blood Count 4.55 M/uL 4.21 M/uL Hemoglobin 13.3 g/dL 12.1 g/dL Hematocrit 38.3 % 36.3 % Mean Corpuscular Volume 84.2 fL 86.2 fL Mean Corpuscular Hemoglobin 29.2 pg 28.7 pg Mean Corpuscular Hemoglobin Concent 34.7 g/dl 33.3 g/dl Platelet Count 228 K/uL 223 K/uL Mean Platelet Volume 9.1 fL 9.1 fL Neutrophils (%) (Auto) 81.5 % 76.5 % Lymphocytes (%) (Auto) 9.5 % 11.0 % Monocytes (%) (Auto) 7.6 % 11.6 % Eosinophils (%) (Auto) 0.7 % 0.2 % Basophils (%) (Auto) 0.2 % 0.3 % Neutrophils # (Auto) 12.25 K/uL 8.69 K/uL Lymphocytes # (Auto) 1.42 K/uL 1.25 K/uL Monocytes # (Auto) 1.14 K/uL 1.31 K/uL Eosinophils # (Auto) 0.10 K/uL 0.02 K/uL Basophils # (Auto) 0.03 K/uL 0.03 K/uL RDW Standard Deviation 39.6 fL 42.7 fL RDW Coefficient of Variation 13.0 % 13.4 % Immature Granulocyte % (Auto) 0.5 % 0.4 % Immature Granulocyte # (Auto) 0.07 K/uL 0.04 K/uL Prothrombin Time 10.1 SECONDS Prothromb Time International Ratio 0.9 Activated Partial Thromboplast Time 25.0 SECONDS Partial Thromboplastin Ratio 1.0 Sodium Level 140 mmol/L 141 mmol/L Potassium Level 3.7 mmol/L 4.2 mmol/L Chloride Level 105 mmol/L 107 mmol/L Carbon Dioxide Level 23 mmol/L 26 mmol/L Anion Gap 12.0 mmol/L 8.0 mmol/L Blood Urea Nitrogen 18 mg/dl 16 mg/dl Creatinine 1.20 mg/dl 1.10 mg/dl Est Creatinine Clear Calc Drug Dose 48.5 ml/min 52.9 ml/min Estimated GFR () 55.3 61.4 Estimated GFR (Non- 47.7 53.0 BUN/Creatinine Ratio 15.4 14.8 Random Glucose 194 mg/dl 141 mg/dl Calcium Level 8.9 mg/dl 8.7 mg/dl Magnesium Level 2.4 mg/dl Chemistry Specimen Hemolysis Assessment and Plan (1) Closed right hip fracture Assessment & Plan: Post op care with dvt prop per orthopedics (2) Depression (3) Seizure disorder Assessment & Plan: continue lamictal
--- NOTE | 2017-02-09 18:47 | DIAGNOSTIC IMAGING REPORT ---
RIGHT HIP 2 VIEWS CLINICAL HISTORY: Postoperative examination. FINDINGS: AP and crosstable lateral portable views of the right hip are correlated with radiographs of the right femur dated 02/08/2017. The skeletal structures are osteopenic. A right hip arthroplasty is in near anatomic alignment. A single cortical lag screw transfixes the acetabular cup. A buttress plate has been placed along the lateral aspect of the proximal femur transfixing a subtrochanteric fracture. The fragments are in near-anatomic alignment. 3 cerclage wires are present around the buttress plate and the arthroplasty stem. There are expected postoperative findings around the right hip including skin clips, a surgical drain, subcutaneous tissues gas, and soft tissue edema. The imaged right hemipelvis appears intact. IMPRESSION: 1. Expected postoperative findings status post right hip arthroplasty procedure. The arthroplasty is in near-anatomic alignment. 2. Subtrochanteric fracture is identified with a buttress plate along the lateral femoral cortex. The fragments are in near-anatomic alignment. Electronically signed by: Franc Ybarra M.D. 02/09/2017 6:45 PM Dictated Date/Time: 02/09/2017 6:42 PM
[2017-02-09] MEDS: HYDROmorphone INJ 0.5 MG/0.5 ML SYR IV PRN ×2 (19:07→20:08)
[2017-02-09] MEDS: FLUOXETINE HCL 20 MG CAP PO SCH (21:16)
[2017-02-10] MEDS: CEFAZOLIN IV 2,000 MG in DEXTROSE 5% 50ML 50 ML IV SCH ×2 (00:18→08:08)
[2017-02-10 00:20] VITALS: BP 178/79
[2017-02-10] MEDS: ACETAMINOPHEN 325 MG TAB PO PRN (00:23)
[2017-02-10] MEDS: HYDROmorphone INJ 0.5 MG/0.5 ML SYR IV PRN ×4 (00:44→05:47)
[2017-02-10 02:42] VITALS: BP 166/80; PULSE 99; TEMP 36.7; O2SAT 96
[2017-02-10] MEDS: OXYCODONE HCL IR 5 MG TAB (IMMEDIATE RELEASE) PO PRN ×2 (03:16→12:34)
[2017-02-10] MEDS: NSS + 20MEQ KCL 1000ML 1,000 ML IV SCH ×2 (05:00→15:28)
[2017-02-10] MEDS ORDERED: CEFAZOLIN 2000 MG/60 ML D5W IV SCH (06:00)
[2017-02-10 06:22] LABS: BASO % 0.2 %; BASO ABS # 0.03 K/uL (0-0.2); COMPLETE YES; EOS % 0.1 %; HEMATOCRIT 30.6 % (37-47); IG% 0.3 %; LYMPH % 8.3 %; LYMPH ABS # 1.24 K/uL (1.2-3.4); MEAN CELL VOLUME 87.9 fL (80-100); MEAN PLATELET VOLUME 9.2 fL (7.4-10.4); MONO % 10.2 %; NEUT % 80.9 %; PLATELET COUNT 210 K/uL (130-400); RED BLOOD COUNT 3.48 M/uL (4.2-5.4); WHITE BLOOD COUNT 14.87 K/uL (4.8-10.8)
[2017-02-10 07:23] VITALS: BP 154/80; PULSE 98; TEMP 36.8; O2SAT 97
[2017-02-10] MEDS ORDERED: HYDROmorphone INJ 0.5 MG/0.5 ML SYR IV PRN ×2 (07:30→09:00)
[2017-02-10 07:38] LABS: BUN/CREATININE RATIO 11.2 (10-20); CREATININE 0.88 mg/dl (0.60-1.20); MAGNESIUM 1.9 mg/dl (1.8-2.4); POTASSIUM 4.1 mmol/L (3.5-5.1)
[2017-02-10] MEDS: OXYCODONE HCL 10 MG TABCR (OXYCONTIN) PO SCH ×2 (07:44→19:30)
[2017-02-10] MEDS: KETOROLAC TROMETHAMINE 30 MG/ML VIAL IV PRN ×2 (07:44→14:19)
--- NOTE | 2017-02-10 08:06 | Orthopedic Progress Note ---
Orthopedic Progress Note Date of Service Feb 10, 2017. Subjective Post OP Day: 1 Reports: complaints (HIP PAIN, PAIN MEDS CHANGED AROUND THIS AM BY MICHEL.), Denies: SOB, calf pain, chest pain, light headedness, nausea / vomiting Objective calves soft nontender, N/V intact, hip located, dressing C/D/I, A&O x3, toes mobile, hemovac drainage (195/100CC PER SHIFT) Date Time Temp Pulse Resp B/P Pulse Ox O2 Delivery O2 Flow Rate FiO2 02/10/17 07:23 36.8 98 16 154/80 97 2.0 02/10/17 07:07 Nasal Cannula 2.0 02/10/17 02:42 36.7 99 16 166/80 96 Nasal Cannula 3.0 02/10/17 00:20 178/79 02/09/17 23:45 Nasal Cannula 3.0 02/09/17 23:25 36.6 96 16 185/93 97 Nasal Cannula 3.0 02/09/17 20:43 36.6 98 17 177/92 95 Nasal Cannula 2.0 02/09/17 19:49 36.9 102 17 183/108 96 Nasal Cannula 2.0 02/09/17 18:43 36.4 96 16 175/95 98 Nasal Cannula 2.0 02/09/17 18:23 36.6 94 16 164/84 95 Nasal Cannula 2.0 02/09/17 17:40 36.4 90 18 121/74 95 Nasal Cannula 3.0 02/09/17 17:40 95 Nasal Cannula 3.0 02/09/17 17:40 95 Nasal Cannula 3.0 02/09/17 17:35 97 16 143/74 97 Nasal Cannula 3 02/09/17 17:20 98 18 133/73 96 Nasal Cannula 3 02/09/17 17:10 36.4 97 20 119/71 96 Nasal Cannula 3 02/09/17 17:00 97 18 122/65 97 Mask 10 02/09/17 16:50 96 18 125/72 97 Mask 10 02/09/17 16:43 36.8 95 16 110/64 98 Mask 10 Laboratory Results 24 Hours: Test 02/10/17 05:48 White Blood Count 14.87 K/uL Red Blood Count 3.48 M/uL Hemoglobin 10.1 g/dL Hematocrit 30.6 % Mean Corpuscular Volume 87.9 fL Mean Corpuscular Hemoglobin 29.0 pg Mean Corpuscular Hemoglobin Concent 33.0 g/dl Platelet Count 210 K/uL Mean Platelet Volume 9.2 fL Neutrophils (%) (Auto) 80.9 % Lymphocytes (%) (Auto) 8.3 % Monocytes (%) (Auto) 10.2 % Eosinophils (%) (Auto) 0.1 % Basophils (%) (Auto) 0.2 % Neutrophils # (Auto) 12.02 K/uL Lymphocytes # (Auto) 1.24 K/uL Monocytes # (Auto) 1.52 K/uL Eosinophils # (Auto) 0.01 K/uL Basophils # (Auto) 0.03 K/uL Assessment & Plan Assessment: POD#1 SP RIGHT ART FOR FRACTURE Inhouse Planning Pain Management: Celebrex, Toradol, Oxycontin, PO Tylenol, Oxy IR DVT Prophylaxis: TEDs, SCDs, Lovenox (40MG ONCE DAILY) Discharge Planning Discharge Planning: detention facility (ANTICIPATE SHORT INPT REHAB STAY. )
[2017-02-10] MEDS: PANTOprazole INJ 40 MG in SYRINGE 0 ML IV SCH (11:07)
[2017-02-10 11:45] VITALS: BP 111/65; PULSE 97; O2SAT 91
[2017-02-10] MEDS ORDERED: CEFAZOLIN IV 2,000 MG/60 ML D5W IV ONE (12:00)
[2017-02-10] MEDS: ENOXAPARIN 40 MG/0.4 ML SYR SQ SCH (12:33)
[2017-02-10 14:59] VITALS: BP 114/67; PULSE 87; TEMP 36.8; O2SAT 94
--- NOTE | 2017-02-10 19:29 | Hospitalist Progress Note ---
Hospitalist Progress Note Date of Service Feb 10, 2017. Subjective Pt evaluation today including: conversation w/ patient, physical exam Pain: better controlled patient has better pain control...has h.o insomnia ambien does not work for patient. Rec Ativan with short acting pain med prior to sleep. Medications Medications (Trade) Dose Ordered Sig/Loly Route Start Time Stop Time Status Last Admin Dose Admin Fluoxetine HCl (Prozac Cap) 100 mg HS PO 02/09/17 21:00 03/11/17 20:59 02/09/17 21:16 100 MG Lamotrigine (Lamictal Tab) 100 mg HS PO 02/09/17 21:00 03/11/17 20:59 02/09/17 21:16 100 MG Enoxaparin Sodium 40 mg 40 mg Q24H SQ 02/10/17 12:00 03/12/17 11:59 02/10/17 12:33 40 MG Cefazolin Sodium/ Dextrose (Ancef Iv/D5 50ml) 60 ml @ 100 mls/hr Q8H IV 02/10/17 00:30 02/10/17 09:05 DC 02/10/17 08:08 100 MLS/HR Oxycodone HCl (Oxycontin Tab) 10 mg Q12H PO 02/10/17 07:30 02/24/17 07:29 02/10/17 07:44 10 MG Hydromorphone HCl (Dilaudid Inj) 0.5 mg NOW PRN IV 02/10/17 07:30 02/10/17 11:30 DC 02/10/17 08:08 0.5 MG Ketorolac Tromethamine (Toradol Inj) 30 mg Q6H PRN IV 02/10/17 07:30 02/15/17 07:29 02/10/17 14:19 30 MG Objective Vital Signs Date Time Temp Pulse Resp B/P Pulse Ox O2 Delivery O2 Flow Rate FiO2 02/10/17 15:30 Nasal Cannula 2.0 02/10/17 14:59 36.8 87 18 114/67 94 Nasal Cannula 2.0 02/10/17 11:45 97 91 02/10/17 07:23 36.8 98 16 154/80 97 2.0 02/10/17 07:07 Nasal Cannula 2.0 02/10/17 02:42 36.7 99 16 166/80 96 Nasal Cannula 3.0 02/10/17 00:20 178/79 02/09/17 23:45 Nasal Cannula 3.0 02/09/17 23:25 36.6 96 16 185/93 97 Nasal Cannula 3.0 02/09/17 20:43 36.6 98 17 177/92 95 Nasal Cannula 2.0 02/09/17 19:49 36.9 102 17 183/108 96 Nasal Cannula 2.0 Physical Exam General Appearance: WD/WN, no apparent distress Eyes: sclerae normal Neck: trachea midline Respiratory/Chest: lungs clear Cardiovascular: regular rate, rhythm Abdomen: normal bowel sounds Laboratory Results Last 24 Hours Test 02/10/17 05:48 White Blood Count 14.87 K/uL Red Blood Count 3.48 M/uL Hemoglobin 10.1 g/dL Hematocrit 30.6 % Mean Corpuscular Volume 87.9 fL Mean Corpuscular Hemoglobin 29.0 pg Mean Corpuscular Hemoglobin Concent 33.0 g/dl Platelet Count 210 K/uL Mean Platelet Volume 9.2 fL Neutrophils (%) (Auto) 80.9 % Lymphocytes (%) (Auto) 8.3 % Monocytes (%) (Auto) 10.2 % Eosinophils (%) (Auto) 0.1 % Basophils (%) (Auto) 0.2 % Neutrophils # (Auto) 12.02 K/uL Lymphocytes # (Auto) 1.24 K/uL Monocytes # (Auto) 1.52 K/uL Eosinophils # (Auto) 0.01 K/uL Basophils # (Auto) 0.03 K/uL RDW Standard Deviation 42.6 fL RDW Coefficient of Variation 13.2 % Immature Granulocyte % (Auto) 0.3 % Immature Granulocyte # (Auto) 0.05 K/uL Sodium Level 139 mmol/L Potassium Level 4.1 mmol/L Chloride Level 105 mmol/L Carbon Dioxide Level 25 mmol/L Anion Gap 9.0 mmol/L Blood Urea Nitrogen 10 mg/dl Creatinine 0.88 mg/dl Est Creatinine Clear Calc Drug Dose 66.1 ml/min Estimated GFR () 80.5 Estimated GFR (Non- 69.4 BUN/Creatinine Ratio 11.2 Random Glucose 135 mg/dl Calcium Level 8.0 mg/dl Magnesium Level 1.9 mg/dl Assessment and Plan (1) Closed right hip fracture Assessment & Plan: s/p repair post operative care per orthopedics (2) Depression Assessment & Plan: continue prozac and lamictal (3) Advance care planning Assessment & Plan: discussed patient has a living will and poa
[2017-02-10] MEDS: FLUOXETINE HCL 20 MG CAP PO SCH (20:53)
[2017-02-10] MEDS ORDERED: SODIUM CHLORIDE 0.9% 500ML 500 ML IV SCH (22:30)
[2017-02-10 22:55] VITALS: BP 135/75; PULSE 95; TEMP 36.7; O2SAT 98
[2017-02-10] MEDS: LORAZEPAM INJ 0.5 MG in SYRINGE 0.75 ML IV PRN (23:07)
[2017-02-11] MEDS: NSS + 20MEQ KCL 1000ML 1,000 ML IV SCH ×2 (01:39→11:04)
[2017-02-11] MEDS: KETOROLAC TROMETHAMINE 30 MG/ML VIAL IV PRN ×2 (01:41→15:45)
[2017-02-11 06:15] LABS: BASO % 0.3 %; BASO ABS # 0.03 K/uL (0-0.2); EOS % 2.1 %; IG% 0.5 %; LYMPH % 15.6 %; LYMPH ABS # 1.57 K/uL (1.2-3.4); MEAN CELL VOLUME 89.1 fL (80-100); MEAN CORPUSCULAR HEMOGLOBIN 28.7 pg (25-34); MEAN CORPUSCULAR HGB CONC 32.2 g/dl (32-36); MONO % 10.2 %; NEUT % 71.3 %; PLATELET COUNT 157 K/uL (130-400); RED BLOOD COUNT 3.03 M/uL (4.2-5.4); WHITE BLOOD COUNT 10.08 K/uL (4.8-10.8)
[2017-02-11] MEDS: POLYETHYLENE (MIRALAX) 17 GM PACK PO SCH ×3 (06:37→19:00)
[2017-02-11 06:44] LABS: COMPLETE YES
[2017-02-11 06:58] LABS: BUN/CREATININE RATIO 13.6 (10-20); CREATININE 0.87 mg/dl (0.60-1.20); MAGNESIUM 2.1 mg/dl (1.8-2.4); POTASSIUM 3.9 mmol/L (3.5-5.1)
[2017-02-11 07:05] VITALS: BP 145/72; PULSE 89; TEMP 36.7; O2SAT 100
[2017-02-11] MEDS: OXYCODONE HCL 10 MG TABCR (OXYCONTIN) PO SCH ×2 (07:05→19:03)
--- NOTE | 2017-02-11 07:51 | Orthopedic Progress Note ---
Orthopedic Progress Note Date of Service Feb 11, 2017. Subjective Post OP Day: 2 Reports: feeling well, Denies: SOB, calf pain, chest pain, light headedness, nausea / vomiting Additional Notes: PAIN CONTROL SEEMS IMPROVED TODAY. Objective calves soft nontender, N/V intact, dressing C/D/I, A&O x3, toes mobile Date Time Temp Pulse Resp B/P Pulse Ox O2 Delivery O2 Flow Rate FiO2 02/11/17 07:05 36.7 89 18 145/72 100 2.0 02/10/17 23:30 Nasal Cannula 2.0 02/10/17 22:55 36.7 95 18 135/75 98 Nasal Cannula 2.0 02/10/17 15:30 Nasal Cannula 2.0 02/10/17 14:59 36.8 87 18 114/67 94 Nasal Cannula 2.0 02/10/17 11:45 97 91 Laboratory Results 24 Hours: Test 02/11/17 05:53 White Blood Count 10.08 K/uL Red Blood Count 3.03 M/uL Hemoglobin 8.7 g/dL Hematocrit 27.0 % Mean Corpuscular Volume 89.1 fL Mean Corpuscular Hemoglobin 28.7 pg Mean Corpuscular Hemoglobin Concent 32.2 g/dl Platelet Count 157 K/uL Mean Platelet Volume 9.0 fL Neutrophils (%) (Auto) 71.3 % Lymphocytes (%) (Auto) 15.6 % Monocytes (%) (Auto) 10.2 % Eosinophils (%) (Auto) 2.1 % Basophils (%) (Auto) 0.3 % Neutrophils # (Auto) 7.19 K/uL Lymphocytes # (Auto) 1.57 K/uL Monocytes # (Auto) 1.03 K/uL Eosinophils # (Auto) 0.21 K/uL Basophils # (Auto) 0.03 K/uL Assessment & Plan Assessment: POD#2 SP RIGHT ART FOR FRACTURE Inhouse Planning Pain Management: Celebrex, Toradol, Oxycontin, PO Tylenol, Oxy IR DVT Prophylaxis: TEDs, SCDs, Lovenox (40MG ONCE DAILY) Discharge Planning Discharge Planning: prison facility (ANTICIPATE SHORT INPT REHAB STAY. )
[2017-02-11] MEDS: PANTOprazole SOD 40 MG TAB PO SCH (08:47)
[2017-02-11] MEDS: ACETAMINOPHEN 325 MG TAB PO PRN (08:49)
[2017-02-11] MEDS: ENOXAPARIN 40 MG/0.4 ML SYR SQ SCH (11:50)
[2017-02-11 14:58] VITALS: BP 121/71; PULSE 86; TEMP 36.7; O2SAT 98
[2017-02-11] MEDS: OXYCODONE HCL IR 5 MG TAB (IMMEDIATE RELEASE) PO PRN (15:45)
[2017-02-11] MEDS ORDERED: NURSING VERBAL MED ORDER ONE (16:30)
[2017-02-11] MEDS: LORAZEPAM INJ 0.5 MG in SYRINGE 0.75 ML IV PRN (16:36)
--- NOTE | 2017-02-11 18:44 | Hospitalist Progress Note ---
Hospitalist Progress Note Date of Service Feb 11, 2017. Subjective Pt evaluation today including: conversation w/ patient patient with no complaints All Other Systems: Reviewed and Negative Objective Vital Signs Date Time Temp Pulse Resp B/P Pulse Ox O2 Delivery O2 Flow Rate FiO2 02/11/17 14:58 36.7 86 18 121/71 98 Room Air 02/11/17 07:05 Room Air 02/11/17 07:05 36.7 89 18 145/72 100 2.0 02/10/17 23:30 Nasal Cannula 2.0 02/10/17 22:55 36.7 95 18 135/75 98 Nasal Cannula 2.0 Physical Exam General Appearance: no apparent distress Respiratory/Chest: lungs clear Cardiovascular: regular rate, rhythm Abdomen: normal bowel sounds Extremities: normal range of motion Skin: normal color Laboratory Results Last 24 Hours Test 02/11/17 05:53 White Blood Count 10.08 K/uL Red Blood Count 3.03 M/uL Hemoglobin 8.7 g/dL Hematocrit 27.0 % Mean Corpuscular Volume 89.1 fL Mean Corpuscular Hemoglobin 28.7 pg Mean Corpuscular Hemoglobin Concent 32.2 g/dl Platelet Count 157 K/uL Mean Platelet Volume 9.0 fL Neutrophils (%) (Auto) 71.3 % Lymphocytes (%) (Auto) 15.6 % Monocytes (%) (Auto) 10.2 % Eosinophils (%) (Auto) 2.1 % Basophils (%) (Auto) 0.3 % Neutrophils # (Auto) 7.19 K/uL Lymphocytes # (Auto) 1.57 K/uL Monocytes # (Auto) 1.03 K/uL Eosinophils # (Auto) 0.21 K/uL Basophils # (Auto) 0.03 K/uL RDW Standard Deviation 43.1 fL RDW Coefficient of Variation 13.2 % Immature Granulocyte % (Auto) 0.5 % Immature Granulocyte # (Auto) 0.05 K/uL Red Blood Cell Morphology Unremarkable Sodium Level 141 mmol/L Potassium Level 3.9 mmol/L Chloride Level 108 mmol/L Carbon Dioxide Level 25 mmol/L Anion Gap 8.0 mmol/L Blood Urea Nitrogen 12 mg/dl Creatinine 0.87 mg/dl Est Creatinine Clear Calc Drug Dose 66.9 ml/min Estimated GFR () 81.6 Estimated GFR (Non- 70.4 BUN/Creatinine Ratio 13.6 Random Glucose 80 mg/dl Calcium Level 8.0 mg/dl Magnesium Level 2.1 mg/dl Assessment and Plan (1) Closed right hip fracture Assessment & Plan: S/p right total hip replacement doing well (2) Depression Assessment & Plan: continue prozac (3) Advance care planning
[2017-02-11] MEDS: FLUOXETINE HCL 20 MG CAP PO SCH (21:13)
[2017-02-11 23:31] VITALS: BP 149/78; PULSE 98; TEMP 37; O2SAT 97
[2017-02-12] MEDS: POLYETHYLENE (MIRALAX) 17 GM PACK PO SCH ×3 (00:45→12:11)
[2017-02-12] MEDS: OXYCODONE HCL 10 MG TABCR (OXYCONTIN) PO SCH (07:45)
[2017-02-12] MEDS: PANTOprazole SOD 40 MG TAB PO SCH (07:45)
--- NOTE | 2017-02-12 07:46 | Orthopedic Progress Note ---
Orthopedic Progress Note Date of Service Feb 12, 2017. Subjective Post OP Day: 3 Reports: feeling well, Denies: SOB, calf pain, chest pain, light headedness, nausea / vomiting Objective calves soft nontender, N/V intact, dressing C/D/I, A&O x3, toes mobile Date Time Temp Pulse Resp B/P Pulse Ox O2 Delivery O2 Flow Rate FiO2 02/12/17 00:45 Nasal Cannula 2.0 02/11/17 23:31 37.0 98 17 149/78 97 Nasal Cannula 2.0 02/11/17 15:30 Room Air 02/11/17 14:58 36.7 86 18 121/71 98 Room Air Laboratory Results 24 Hours: Test 02/12/17 07:28 Assessment & Plan Assessment: POD#2 SP RIGHT ART FOR FRACTURE Plan: DC PREVENA DRESSING 1 WEEK POST OP WBAT WITH WALKER CONT JESSICA HOSE X 2 WEEKS LOVENOX X 14 DAYS THEN ASA 81BID X [address] FOLLOW UP WITH DR. HICKMAN IN 2 WEEKS FOR WOUND CHECK AND XRAY. ORTHO INSTRUCTIONS ON THE CHART. Inhouse Planning Pain Management: Celebrex, Toradol, Oxycontin, PO Tylenol, Oxy IR DVT Prophylaxis: TEDs, SCDs, Lovenox (40MG ONCE DAILY) Discharge Planning Discharge Planning: prison facility (ANTICIPATE SHORT INPT REHAB STAY. )
[2017-02-12 07:54] VITALS: BP 158/84; PULSE 91; TEMP 36.7; O2SAT 93
[2017-02-12 09:08] LABS: BASO % 0.3 %; BASO ABS # 0.03 K/uL (0-0.2); EOS % 3.7 %; HEMATOCRIT 26.6 % (37-47); IG% 0.6 %; LYMPH % 11.3 %; LYMPH ABS # 1.21 K/uL (1.2-3.4); MEAN CELL VOLUME 86.9 fL (80-100); MEAN CORPUSCULAR HEMOGLOBIN 28.1 pg (25-34); MEAN CORPUSCULAR HGB CONC 32.3 g/dl (32-36); MEAN PLATELET VOLUME 8.7 fL (7.4-10.4); MONO % 8.9 %; NEUT % 75.2 %; PLATELET COUNT 217 K/uL (130-400); RED BLOOD COUNT 3.06 M/uL (4.2-5.4)
[2017-02-12 09:52] LABS: COMPLETE YES
[2017-02-12] MEDS: OXYCODONE HCL IR 5 MG TAB (IMMEDIATE RELEASE) PO PRN (10:31)
[2017-02-12] MEDS ORDERED: RXC5 PO (10:43)
[2017-02-12] MEDS ORDERED: MRLP17 PO (10:43)
[2017-02-12] MEDS ORDERED: OXYSR10 PO (10:43)
[2017-02-12] MEDS ORDERED: SODIENE6 PR (10:43)
[2017-02-12] MEDS ORDERED: DLCS PR (10:43)
--- NOTE | 2017-02-12 10:49 | Discharge Instructions ---
Discharge Instructions Date of Service Feb 12, 2017. Admission Reason for Admission: Closed Right Hip Fracture Discharge Discharge Diagnosis / Problem: right hip fracture Discharge Goals Goal(s): Improve function, Increase independence Activity Recommendations Activity Limitations: per Instructions/Follow-up section . Instructions / Follow-Up Instructions / Follow-Up follow up with Primary care Physician 1 week after discharge Follow up with orthopedics as directed Current Hospital Diet Patient's current hospital diet: Regular Diet Discharge Diet Recommended Diet: Regular Diet Procedures Procedures Performed: Right Cemented Hip Replacement Constrained Acetabular Cup, Greater Trochater Repair Pending Studies Studies pending at discharge: no Medical Emergencies . Who to Call and When: Medical Emergencies: If at any time you feel your situation is an emergency, please call 911 immediately. . Non-Emergent Contact Non-Emergency issues call your: Primary Care Provider . . "Provider Documentation" section prepared by Jude Bardales. . Wreath Machine Operator Recommendations Wreath Machine Operator Recommendations: ACTIVITY RECOMMENDATIONS: SELF CARE INSTRUCTIONS AFTER TOTAL HIP REPLACEMENT Until the incision and soft tissues around your hip have healed, there is a possibility that the hip prosthesis could dislocate. A. Observe the following precautions to prevent dislocation: 1. Don't bend your hip greater than 90 degrees. 2. Avoid crossing your legs or ankles while standing or lying. 3. Sit with your feet placed 6 inches apart. 4. When sitting, keep your knees below your hips. Sit on a firm surface, avoid deep, soft chairs and couches. Use an elevated toilet seat in the bathroom. 5. Don't bend over at the waist. Use a long handled shoehorn and a sock aid to help you put on your shoes and socks. A cushion spring assembler can help you brass pickler objects that are too high or too low to reach. 6. Keep car riding to a minimum for at least one month after surgery. B. Your balance may be shaky for a while. Use crutches or a walker until directed by your doctor. C. Use hand rails when walking on stairs. D. Wear low heeled shoes with non-slip soles. E. Be sure that your floors are free of things that could trip you - throw rugs , electrical cords, small objects. Avoid wet and waxed floors, especially with crutches and canes. F. Try to walk several times a day with rest periods between. G. Continue with all the exercises taught to you in the hospital. Again, make walking a part of your daily routine. SPECIAL CARE INSTRUCTIONS: VERY IMPORTANT TO READ AND REVIEW A. You may still be at risk for phlebitis and blood clots. 1. Wear surgical stockings (JESSICA hose) for 2 weeks after surgery to improve circulation and reduce swelling. 3. High risk patients may be prescribed a stronger blood thinner if necessary. -LOVENOX 40mg daily x 2 weeks then ASA 81mg BID x 2 weeks. 4. If you are on Coumadin normally, your family doctor/oceanography professor should monitor your blood work. Expect a phone call the day of or the day after bloodwork is drawn to adjust your dosage. B. You must take antibiotics before having dental work, bladder, bowel and other surgery. Your doctor will provide you with a permanent card to carry describing precautions. C. Call [facility] if you have a fever, redness or swelling around the incision, cloudy drainage from incision, or sudden increase in pain in your hip, not relieved by your regular pain medication. D. Please call the office at if you have any concerns or questions about your operation or recovery. * YOU MAY SHOWER, NO TUB BATHS UNTIL CLEARED BY YOUR DOCTOR. * WEAR JESSICA HOSE 20 HOURS PER DAY FOR 2 WEEKS. * YOU SHOULD USE A WALKER OR CRUTCHES FOR 2-4 WEEKS. THIS WILL HELP PREVENT STRAIN ON YOUR HIP MUSCLE AND ALLOW IT TO HEAL PROPERLY. YOU MAY WEAN TO A CANE TOLERATED. * MOST PATIENTS WILL HAVE HOME NURSING FOR THERAPY. IF YOU DECIDE TO DO OUTPATIENT PHYSICAL THERAPY, PLEASE SCHEDULE THIS 3 TIMES PER WEEK. Prevena- This is a large suction dressing covering your incision. This will help pull any excess drainage from the wound and allow your incision to heal properly. You may shower with this if you can keep the unit outside of the shower. If any bleeding or leakage is noted please call your doctor's office. This will remain on your incision for 7 days and then should be removed. This can be done yourself or by the home nursing staff if applicable. The entire unit is disposable once removed. Once removed, keep incision clean and dry. If redness or drainage is noted, please call your surgeon. FOLLOW UP VISIT: If appointment is not already scheduled: Please call [facility] to make a follow-up appointment for 2 weeks after your surgery at . VTE Core Measure Inpt VTE Proph given/why not?: SCD's
[2017-02-12] MEDS: KETOROLAC TROMETHAMINE 30 MG/ML VIAL IV PRN (11:52)
[2017-02-12] MEDS: ENOXAPARIN 40 MG/0.4 ML SYR SQ SCH (12:10)
[2017-02-12 13:23] VITALS: BP 158/84; PULSE 91; TEMP 36.7; O2SAT 93
--- NOTE | 2017-02-16 18:29 | DISCHARGE SUMMARY ---
Please see dictated H and P for full details. A 66-year-old who came in complaining of severe right hip pain which started right after she was jogging and fell. She had no other complaints other than right hip pain post falling. Workup in the Emergency Room revealed an anterior trochanteric right hip fracture. Fracture is comminuted and mildly displaced. She was admitted and Dr. Johnson was consulted for orthopedics. On 02/09/2017, she underwent a right cemented hip replacement constrained acetabular cup and a greater trochanteric repair. Estimated blood loss was 300 mL. She had an unremarkable postoperative period and was deemed to be stable for discharge on 02/12/2017. She was accepted at [facility] and transferred there in stable condition. Time spent in review of the chart, discussion with the patient on the date of discharge 31 minutes. AVELINA
== END 2017-02-12 13:46 | DRG 470 ==
LOC: ENRESERVDT → ENRESERVTM → EDBD 19:16 → C.EDC 19:17 → C.3E 21:53
PROVIDERS: ADMIT Hospitalist; ATTEND Hospitalist
PROC: 0SR90J9 Replacement of Right Hip Joint with Synthetic Substitute, Cemented, Open Approach (ICD-10-PCS; principal; 2017-02-09 13:00)
DX: S72.141A Displaced intertrochanteric fracture of right femur, initial encounter for closed fracture (principal); Z79.899 Other long term (current) drug therapy; F32.9 Major depressive disorder, single episode, unspecified; Z90.710 Acquired absence of both cervix and uterus; G40.909 Epilepsy, unspecified, not intractable, without status epilepticus; W01.0XXA Fall on same level from slipping, tripping and stumbling without subsequent striking against object, initial encounter; Y93.02 Activity, running

== ENCOUNTER → 2017-07-27 | Outpatient (CLI) | payer OTHER ==
[~2017-07-27] MED LIST changes: -AMBCR125 PO; -BUPR200T2 PO; +DLCS PR; -DVNUNK; -ESCI1TAB10 PO; +FLUO40CA8 PO; -FSM70 PO; -GLC500 PO; +LAMO100T16 PO; -LMCUNK; +MRLP17 PO; +NAPR1TAB9 PO; +OXYSR10 PO; +RXC5 PO; +SODIENE6 PR
--- NOTE | 2017-07-27 15:30 | MAMMOGRAPHY REPORT ---
BILATERAL DIGITAL SCREENING MAMMOGRAM WITH CAD: 07/27/2017 CLINICAL HISTORY: Routine screening. Patient has no complaints. TECHNIQUE: Bilateral CC and MLO views were obtained. Current study was also evaluated with a Compute r Aided Detection (CAD) system. COMPARISON: Comparison is made to exams dated: 07/24/2016 mammogram, 07/18/2015 mammogram, 05/18/2014 m ammogram, 05/09/2014 mammogram, 05/01/2014 mammogram - [facility], and [place]/26/[place] [facility]. BREAST COMPOSITION: The tissue of both breasts is heterogeneously dense, which may obscure small mas ses. FINDINGS: There is a stable ribbon-shaped biopsy marker clip adjacent to a previously biopsied parti ally circumscribed mass in the 9:00 right breast anteriorly. Stable grouped round and punctate micro calcifications in the left upper outer quadrant, that are unchanged dating back to at least 2007. No new suspicious mass, architectural distortion or cluster of microcalcifications is seen. IMPRESSION: ACR BI-RADS CATEGORY 2: BENIGN There is no mammographic evidence of malignancy. A 1 year screening mammogram is recommended. The pa tient will receive written notification of the results. Approximately 10% of breast cancers are not detected with mammography. A negative mammographic report should not delay biopsy if a clinically suggestive mass is present. Quynh Boyle M.D. ay/:07/27/2017 15:21:07 Sales Stock Associate: Myrna ACEVES(Louise)(Talita)(BD), [facility] letter sent: Normal 1/2 BI-RADS Code: ACR BI-RADS Category 2: Benign
== END | disposition home or self-care (01) ==
LOC: C.MAMM 08:45
PROVIDERS: ATTEND Nurse Practitioner Family
DX: Z12.31 Encounter for screening mammogram for malignant neoplasm of breast (principal)

== ENCOUNTER 2017-11-01 05:10 | Emergency (ER) | payer OTHER ==
[~2017-11-01] VITALS: Ht 165.1 cm; Wt 77.8 kg
[2017-11-01 05:15] VITALS: TEMP 36.9; Ht 165.1 cm; Wt 77.8 kg
[2017-11-01] MEDS ORDERED: SODIUM CHLORIDE 0.9% 500ML 500 ML IV STA ×2 (05:34→11:32)
[2017-11-01] MEDS ORDERED: ONDANSETRON INJ 2 MG/ML 2 ML VIAL IV STA ×2 (05:34→09:01)
--- NOTE | 2017-11-01 05:37 | EMERGENCY ROOM VISIT NOTE ---
History Report prepared by Vidal: Quirino Vanegas Under the Supervision of: Dr. Anayeli Figueroa D.O. First contact with patient: 05:22 Chief Complaint: VOMITING Stated Complaint: VOMITING FOR 2 DAYS History of Present Illness The patient is a 67 year old female who presents to the Emergency Room with complaints of persistent nausea and vomiting that began on Wednesday of last week , two days prior to arrival. The patient states that she developed a cough on of last week, and went to [facility]. At [facility] she was given a prescription for Prednisone. She took the Prednisone for the first time on Wednesday, the same day the vomiting began. The patient also complains of abdominal pain and weakness, but denies any dizziness. She claims that she has had stomach issues since she was very young. Her most recent bowel movement was Wednesday, and was loose and dark in color. She is not currently taking any blood thinners. States was using Alleve for her discomfort previously but hasn' t had any since starting the steroids. No ASA at home. Source of History: patient Onset: Two days FLYING INSTRUCTOR Position: other (GI) Quality: other (Vomiting) Timing: other (persistent) Associated Symptoms: + abdominal pain, + weakness Review of Systems See HPI for pertinent positives & negatives. A total of 10 systems reviewed and were otherwise negative. Past Medical & Surgical Medical Problems: (1) Advance care planning (2) Closed right hip fracture (3) Depression (4) Seizure disorder Family History Patient reports no known family medical history. Social History Smoking Status: Never Smoker Drug Use: none Marital Status: Occupation Status: retired Current/Historical Medications Scheduled Fluoxetine (Prozac), 100 MG PO HS Lamotrigine (Lamictal), 100 MG PO HS Prednisone (Prednisone), 2 TAB PO DAILY Allergies Coded Allergies: No Known Allergies (Unverified , 11/01/17) Physical Exam Vital Signs Date Time Temp Pulse Resp B/P (MAP) Pulse Ox O2 Delivery O2 Flow Rate FiO2 11/01/17 07:17 83 18 140/79 11/01/17 06:16 91 11/01/17 06:12 94 20 155/86 95 Room Air 11/01/17 05:15 36.9 108 18 131/79 94 Room Air Physical Exam GENERAL: alert, anxious appearing, well nourished, non-toxic EYE EXAM: normal conjunctiva, PERRL and EOM's grossly intact OROPHARYNX: no exudate, no erythema, lips, buccal mucosa, and tongue normal and mucous membranes are moist NECK: supple, no nuchal rigidity, no adenopathy, non-tender LUNGS: Clear to auscultation. Normal chest wall mechanics HEART: no murmurs, S1 normal and S2 normal ABDOMEN: abdomen soft, non-tender, normo-active bowel sounds, no masses, no rebound or guarding. BACK: Back is symmetrical on inspection and there is no deformity, no midline tenderness, no CVA tenderness. SKIN: no rashes and no bruising UPPER EXTREMITIES: upper extremities are grossly normal. LOWER EXTREMITIES: No pitting edema. NEURO EXAM: Normal sensorium Medical Decision & Procedures ER Provider Diagnostic Interpretation: CHEST X-RAY: A study of the chest was reviewed and was negative for infiltrate, effusion, pneumothorax, or wide mediastinum. NO CM. ABDOMINAL X-RAY: NO obvious SBO, No free air. Loose stool throughout. Surgical clip noted. Scoliosis noted. BILIARY ULTRASOUND CLINICAL HISTORY: abnormal LFTs COMPARISON STUDY: No previous studies for comparison. FINDINGS: The pancreas is poorly visualized. There is no right-sided hydronephrosis. There is a 1 cm right renal cyst. The gallbladder surgically absent. The common bile duct measures 8 mm. No focal hepatic masses were visualized. The portal triads were slightly echogenic. This is a nonspecific finding which has been reported in hepatitis, heart failure, fasting patients, as well as other rarer entities. IMPRESSION: 1. Nondiagnostic evaluation the pancreas 2. Surgically absent gallbladder 3. 8 mm common bile duct 4. Increased echogenicity of the portal triads, a nonspecific finding. Electronically signed by: Micheal Hook M.D. 11/01/2017 7:11 AM Dictated Date/Time: 11/01/2017 7:06 AM Laboratory Results 11/01/17 05:30 Red Blood Count 5.29, Mean Corpuscular Volume 85.1, Mean Corpuscular Hemoglobin 28.7, Mean Corpuscular Hemoglobin Concent 33.8, Mean Platelet Volume 9.6, Neutrophils (%) (Auto) 69.4, Lymphocytes (%) (Auto) 17.2, Monocytes (%) (Auto) 13.1, Eosinophils (%) (Auto) 0.0, Basophils (%) (Auto) 0.1, Neutrophils # (Auto ) 6.08, Lymphocytes # (Auto) 1.51, Monocytes # (Auto) 1.15, Eosinophils # (Auto ) 0.00, Basophils # (Auto) 0.01 11/01/17 05:30 Test 11/01/17 05:30 11/01/17 05:42 White Blood Count 8.77 K/uL (4.8-10.8) Red Blood Count 5.29 M/uL (4.2-5.4) Hemoglobin 15.2 g/dL (12.0-16.0) Hematocrit 45.0 % (37-47) Mean Corpuscular Volume 85.1 fL (80-100) Mean Corpuscular Hemoglobin 28.7 pg (25-34) Mean Corpuscular Hemoglobin Concent 33.8 g/dl (32-36) Platelet Count 262 K/uL (130-400) Mean Platelet Volume 9.6 fL (7.4-10.4) Neutrophils (%) (Auto) 69.4 % Lymphocytes (%) (Auto) 17.2 % Monocytes (%) (Auto) 13.1 % Eosinophils (%) (Auto) 0.0 % Basophils (%) (Auto) 0.1 % Neutrophils # (Auto) 6.08 K/uL (1.4-6.5) Lymphocytes # (Auto) 1.51 K/uL (1.2-3.4) Monocytes # (Auto) 1.15 K/uL (0.11-0.59) Eosinophils # (Auto) 0.00 K/uL (0-0.5) Basophils # (Auto) 0.01 K/uL (0-0.2) RDW Standard Deviation 40.8 fL (36.4-46.3) RDW Coefficient of Variation 13.1 % (11.5-14.5) Immature Granulocyte % (Auto) 0.2 % Immature Granulocyte # (Auto) 0.02 K/uL (0.00-0.02) Prothrombin Time 9.9 SECONDS (9.0-12.0) Prothromb Time International Ratio 0.9 (0.9-1.1) Anion Gap 10.0 mmol/L (3-11) Est Creatinine Clear Calc Drug Dose 47.8 ml/min Estimated GFR () 54.4 Estimated GFR (Non- 46.9 BUN/Creatinine Ratio 19.3 (10-20) Calcium Level 9.2 mg/dl (8.5-10.1) Magnesium Level 2.0 mg/dl (1.8-2.4) Total Bilirubin 0.4 mg/dl (0.2-1) Aspartate Amino Transf (AST/SGOT) 183 U/L (15-37) Alanine Aminotransferase (ALT/SGPT) 326 U/L (12-78) Alkaline Phosphatase 82 U/L (45-117) Troponin I < 0.015 ng/ml (0-0.045) Total Protein 7.6 gm/dl (6.4-8.2) Albumin 3.4 gm/dl (3.4-5.0) Globulin 4.2 gm/dl (2.5-4.0) Albumin/Globulin Ratio 0.8 (0.9-2) Lipase 82 U/L (73-393) Bedside Lactic Acid Venous 1.68 mmol/L (0.90-1.70) Laboratory results per my review. Medications Administered Medications (Trade) Dose Ordered Sig/Loly Route Start Time Stop Time Status Last Admin Dose Admin Sodium Chloride 500 ml @ 999 mls/hr Q31M STAT IV 11/01/17 05:34 11/01/17 06:04 DC 11/01/17 05:46 999 MLS/HR Pantoprazole Sodium 40 mg/ Syringe 10 ml @ 5 mls/min NOW ONCE IV 11/01/17 05:45 11/01/17 05:46 DC 11/01/17 06:09 5 MLS/MIN Ondansetron HCl (Zofran Inj) 4 mg NOW STAT IV 11/01/17 05:34 11/01/17 05:37 DC 11/01/17 05:46 4 MG Al Hydroxide/Mg Hydroxide (Maalox Susp) 15 ml NOW STAT PO 11/01/17 05:42 11/01/17 05:43 DC 11/01/17 05:46 15 ML Sucralfate (Carafate Susp) 1 gm NOW STAT PO 11/01/17 07:27 11/01/17 07:28 DC 11/01/17 07:44 1 GM ECG Indication: vomiting Rate (beats per minute): 91 Rhythm: normal sinus Findings: no acute ischemic change, no ectopy, other (Normal Intervals) Comparison ECG Date: 02/08/2017 Change: no significant change ED Course 0526: The patient was evaluated in room B11. A complete history and physical exam was performed. 0534: Ordered Zofran 4 mg IV, Sodium Chloride 500 mL @ 999 mL/hr IV. 0542: Ordered Maalox 15 mL PO. 0545: Ordered Pantoprazole 10 mL @ 5 mLs/min IV. Medical Decision Differential diagnosis: Etiologies such as gastroenteritis, food borne illness, infections, appendicitis , diverticulitis, inflammatory bowel disease, obstruction, GI bleed, biliary pathology, as well as others were entertained. Medication Reconcilliation Current Medication List: was personally reviewed by me Blood Pressure Screening Patient's blood pressure: Elevated blood pressure Blood pressure disposition: Elevated BP felt to be situational Impression Primary Impression: Vomiting Additional Impressions: Abdominal pain GI bleed Gastritis Scribe Attestation The scribe's documentation has been prepared under my direction and personally reviewed by me in its entirety. I confirm that the note above accurately reflects all work, treatment, procedures, and medical decision making performed by me. Departure Information Dispostion Home / Self-Care Referrals Meredith Raya C.R.NTaylorPTaylor (PCP) Patient Instructions My [facility] Additional Instructions Please call and follow-up with your family doctor. Do not take any more steroids and do not use aspirin or other antiinflammatories such as ibuprofen/ advil/alleve/motrin until you are seen and your symptoms resolve. Please take the stomach medication as prescribed. Please avoid any additional acidic foods in your diet such as alcohol, coffee, tomato based products, citrus fruits. If you have any worsening pain, recurrent vomiting, notice black or bloody stools, develop dizziness, worsening weakness, chest pain, or you have any other new concerns, please return to the emergency room. Please have your family doctor recheck your liver numbers as they were elevated here today. There can be many reasons for this including a side effects of medications. Problem Qualifiers Primary Impression: Vomiting Vomiting type: unspecified Vomiting Intractability: non-intractable Nausea presence: with nausea Qualified Codes: R11.2 - Nausea with vomiting, unspecified Additional Impressions: Abdominal pain Abdominal location: epigastric Qualified Codes: R10.13 - Epigastric pain GI bleed GI bleed type/associated pathology: unspecified gastrointestinal hemorrhage type Qualified Codes: K92.2 - Gastrointestinal hemorrhage, unspecified Gastritis Gastritis type: other gastritis Chronicity: acute Gastritis bleeding: with bleeding Qualified Codes: K29.01 - Acute gastritis with bleeding
[2017-11-01] MEDS ORDERED: ALUMINUM/MAGNESIUM SUSP 30 ML UDC PO STA (05:42)
[2017-11-01] MEDS ORDERED: PANTOprazole INJ 40 MG in SYRINGE 0 ML IV ONE (05:45)
[2017-11-01 05:46] LABS: BASO % 0.1 %; BASO ABS # 0.01 K/uL (0-0.2); HEMOGLOBIN 15.2 g/dL (12.0-16.0); IG# 0.02 K/uL (0.00-0.02); LYMPH % 17.2 %; LYMPH ABS # 1.51 K/uL (1.2-3.4); MEAN CELL VOLUME 85.1 fL (80-100); MEAN CORPUSCULAR HEMOGLOBIN 28.7 pg (25-34); MEAN CORPUSCULAR HGB CONC 33.8 g/dl (32-36); MEAN PLATELET VOLUME 9.6 fL (7.4-10.4); MONO % 13.1 %; MONO ABS # 1.15 K/uL (0.11-0.59); NEUT % 69.4 %; NEUT ABS # 6.08 K/uL (1.4-6.5); PLATELET COUNT 262 K/uL (130-400); RED CELL DISTRIBUTION WIDTH CV 13.1 % (11.5-14.5); RED CELL DISTRIBUTION WIDTH SD 40.8 fL (36.4-46.3); WHITE BLOOD COUNT 8.77 K/uL (4.8-10.8)
[2017-11-01 06:00] LABS: INR 0.9 (0.9-1.1)
[2017-11-01 06:13] LABS: ALBUMIN 3.4 gm/dl (3.4-5.0); ALT/SGPT 326 U/L (12-78); AST/SGOT 183 U/L (15-37); BLOOD UREA NITROGEN 23 mg/dl (7-18); CALCIUM 9.2 mg/dl (8.5-10.1); CARBON DIOXIDE 24 mmol/L (21-32); CREATININE 1.21 mg/dl (0.60-1.20); GLUCOSE 124 mg/dl (70-99); LIPASE 82 U/L (73-393); POTASSIUM 3.4 mmol/L (3.5-5.1); SODIUM 135 mmol/L (136-145)
[2017-11-01 06:18] LABS: ALKALINE PHOSPHATASE 82 U/L (45-117); TOTAL PROTEIN 7.6 gm/dl (6.4-8.2)
[2017-11-01] MEDS ORDERED: PRED20TA PO (06:43)
--- NOTE | 2017-11-01 07:12 | DIAGNOSTIC IMAGING REPORT ---
BILIARY ULTRASOUND CLINICAL HISTORY: abnormal LFTs COMPARISON STUDY: No previous studies for comparison. FINDINGS: The pancreas is poorly visualized. There is no right-sided hydronephrosis. There is a 1 cm right renal cyst. The gallbladder surgically absent. The common bile duct measures 8 mm. No focal hepatic masses were visualized. The portal triads were slightly echogenic. This is a nonspecific finding which has been reported in hepatitis, heart failure, fasting patients, as well as other rarer entities. IMPRESSION: 1. Nondiagnostic evaluation the pancreas 2. Surgically absent gallbladder 3. 8 mm common bile duct 4. Increased echogenicity of the portal triads, a nonspecific finding. Electronically signed by: Micheal Hook M.D. 11/01/2017 7:11 AM Dictated Date/Time: 11/01/2017 7:06 AM
--- NOTE | 2017-11-01 07:20 | DIAGNOSTIC IMAGING REPORT ---
CHEST AND ABDOMEN 2 VIEWS HISTORY: epigastric pain, vomiting COMPARISON: Chest 02/08/2017. FINDINGS: The lungs are clear. The heart is normal in size. No pleural effusions. No pneumothorax. There are apical predominant emphysematous changes. Mild dextroscoliosis of the lumbar spine. Cholecystectomy. No pneumoperitoneum. No pneumatosis. The bowel gas pattern is unremarkable. No evidence for bowel obstruction. Right total hip arthroplasty. No renal or ureteral calculi identified. IMPRESSION: No acute cardiopulmonary process. No evidence for bowel obstruction. Electronically signed by: Anson Pedroza M.D. 11/01/2017 7:19 AM Dictated Date/Time: 11/01/2017 7:17 AM
[2017-11-01] MEDS ORDERED: SUCRALFATE 1 GM/10 ML UDC PO STA (07:27)
[2017-11-01] MEDS ORDERED: PANT40TA PO (07:49)
[2017-11-01] MEDS ORDERED: ONDA4TAB10 SL (09:03)
[2017-11-01] MEDS ORDERED: PROMETHAZINE HCL INJ 12.5 MG in SODIUM CHLORIDE 0.9% 50ML 50 ML IV STA (11:05)
[2017-11-01] MEDS ORDERED: PROM25TA9 PO (12:39)
[2017-11-01 12:59] VITALS: BP 160/65; PULSE 84; O2SAT 96
--- NOTE | 2017-11-01 15:09 | EMERGENCY ROOM VISIT NOTE ---
ED Visit Note First contact with patient: 11:32 I received this patient in signout at the change of shift from Dr. Figueroa. Patient was awaiting IV hydration and improvement in her nausea. The patient felt well and upon standing to get dressed to be discharged, had an acute exacerbation of her nausea. She was ordered 4 mg of IV Zofran and observed. The patient did not have significant improvement and requested something different. She was given IV Phenergan 12.5 mg. She denied any further vomiting. She did receive a second 500 mL bolus of IV normal saline solution. The patient had near complete resolution of her symptoms. The patient was given a prescription for Phenergan 25 mg tablets every 6 hours as needed for nausea. She will follow-up with her PCP and follow discharge instructions as given by Dr. Figueroa. She will begin Protonix as prescribed by Dr. Figueroa earlier. Patient was advised to return to the ER for worsening of symptoms or any medical concerns.
== END 2017-11-01 13:01 | disposition home or self-care (01) ==
LOC: C.EDB 05:12
DX: R11.2 Nausea with vomiting, unspecified (principal); R10.13 Epigastric pain; K29.01 Acute gastritis with bleeding; F32.9 Major depressive disorder, single episode, unspecified; G43.909 Migraine, unspecified, not intractable, without status migrainosus; Z79.899 Other long term (current) drug therapy